=== PATIENT | male | born 1950 | race Caucasian/White ===

== ENCOUNTER 2017-05-01 04:56 | Emergency (ER) | payer OTHER ==
[~2017-05-01] VITALS: Ht 170.2 cm; Wt 60.8 kg
[2017-05-01 05:21] LABS: BASOPHILS % (AUTO) 0.6 % (0.0-2.0); EOSINOPHILS # (AUTO) 0.2 /CMM (0.0-0.7); EOSINOPHILS % (AUTO) 2.3 % (0.0-6.0); HEMATOCRIT 30 % (39-51); HEMOGLOBIN 10.1 g/dL (13.5-17.5); LYMPHOCYTES # (AUTO) 1.8 /CMM (0.8-4.8); LYMPHOCYTES % (AUTO) 25.7 % (20.0-44.0); MEAN CORPUSCULAR HEMOGLOBIN 30 PG (26.0-33.0); MEAN CORPUSCULAR HGB CONC 34 g/dl (31.0-36.0); MEAN CORPUSCULAR VOLUME 89 fL (80-96); MONOCYTES # (AUTO) 0.3 /CMM (0.1-1.30); MONOCYTES % (AUTO) 3.8 % (2.0-12.0); NEUTROPHILS # (AUTO) 4.7 /CMM (1.8-8.9); NEUTROPHILS % (AUTO) 67.6 % (43.0-81.0); PLATELET COUNT (AUTO) 175 /CMM (150-450); RDW COEFFICIENT OF VARIATION 15.8 (11.5-15.0); RED BLOOD CELL COUNT(AUTO) 3.39 MIL/uL (4.5-6.0)
[2017-05-01 05:32] LABS: CALCIUM, SERUM 8.2 mg/dL (8.5-10.1); CREATININE 1.6 mg/dL (0.6-1.3); POTASSIUM 4.4 mmol/L (3.5-5.1)
[2017-05-01 05:37] LABS: ALBUMIN 3.2 g/dL (3.4-5.0); BILIRUBIN,DIRECT 0.1 mg/dL (0.0-0.2); BILIRUBIN,TOTAL 0.2 mg/dL (0.2-1.0); TOTAL PROTEIN, SERUM 6.3 g/dL (6.4-8.2)
[2017-05-01 05:41] LABS: APPEARANCE,URINE CLEAR (CLEAR); BILIRUBIN,URINE NEGATIVE (NEGATIVE); BLOOD, URINE 1+ Ery/uL (NEGATIVE); COLOR,URINE YELLOW (YELLOW); KETONES,URINE NEGATIVE (NEGATIVE); LEUKOCYTE ESTERASE ,URINE NEGATIVE (NEGATIVE); NITRITE, URINE NEGATIVE (NEGATIVE); PROTEIN,URINE 1+ mg/dl (NEGATIVE); UGLUCOSE TRACE mg/dL (NEGATIVE); UROBILINOGEN,URINE 0.2 EU/dL (0.2)
[2017-05-01 05:49] LABS: BACTERIA,URINE None seen /HPF (None Seen); SQUAMOUS EPITHELIAL CELL,UR None Seen /HPF (None Seen); WBC,URINE 0-2 /HPF (0-3)
[2017-05-01 05:50] LABS: MUCUS,URINE Few /LPF (None Seen)
[2017-05-01 06:12] VITALS: BP 154/79
== END 2017-05-01 06:12 | disposition home or self-care (01) ==
LOC: ER 04:57
DX: E11.649 Type 2 diabetes mellitus with hypoglycemia without coma (principal); T38.3X5A Adverse effect of insulin and oral hypoglycemic [antidiabetic] drugs, initial encounter; Y92.89 Other specified places as the place of occurrence of the external cause; I10 Essential (primary) hypertension
CPT/HCPCS: 36415; 80048-TC; 80076-TC; 81000-TC; 82962-TC; 83690-TC; 85025-TC; A4606; Z7610

== ENCOUNTER 2017-08-25 16:54 | Emergency (ER) | payer MEDICARE, OTHER ==
[~2017-08-25] VITALS: Ht 172.7 cm; Wt 57.6 kg
--- NOTE | 2017-08-25 16:59 | NUR ---
RIGHT SIDE RIB CAGE PAIN S/P GLF ON MONDAY S/P HYPOGLYCEMIA
[2017-08-25] MEDS ORDERED: HYDROCODONE/APAP 5/325MG 1 EACH TABLET ONE (17:19)
[2017-08-25] MEDS ORDERED: HYDROCODONE/APAP 5/325MG 1 EACH TABLET PO ONE (17:30)
[2017-08-25 18:11] VITALS: BP 155/90
--- NOTE | 2017-08-25 18:11 | NUR ---
Patient discharged to home in stable condition. Written and verbal after care instructions given. Patient verbalizes understanding of instruction.
== END 2017-08-25 18:12 | disposition home or self-care (01) ==
LOC: ER 16:56
DX: S22.31XA Fracture of one rib, right side, initial encounter for closed fracture (principal); F17.200 Nicotine dependence, unspecified, uncomplicated; E10.9 Type 1 diabetes mellitus without complications; W18.39XA Other fall on same level, initial encounter; Y93.89 Activity, other specified; Y92.89 Other specified places as the place of occurrence of the external cause; Y99.8 Other external cause status; I10 Essential (primary) hypertension
CPT/HCPCS: 71250; 99284; A4606; Z7610

== ENCOUNTER 2017-12-08 22:29 | Emergency (ER) | payer MEDICARE, OTHER ==
--- NOTE | 2017-12-08 22:54 | NUR ---
67 YO MALE BB FAMILY, CAME IN FOR AN IV DC. SERGO STATES HE CALLED 911 2 DAYS AGO FOR LOW BLOOD SUGAR, EMS STARTED THE 18G LEFT FA, THEN DID NOT TRANSPORT HIM TOP THE HOSPITAL, NORE DID THEY DC THE IV. PATIENT ONLY COMPLAINT WAS THE IV. I DC THE IV, CATH INTACT, 2X2 GAUZE PLACED OVER SITE. NO DISTRESS NOTED, BLEEDING STOPPED. PATIENT THEN LEFT [facility] ED, DID NOT WANT TO BE SEE BY
== END 2017-12-08 22:59 | disposition home or self-care (01) ==
LOC: ER 22:38
DX: Z53.21 Procedure and treatment not carried out due to patient leaving prior to being seen by health care provider (principal)

== ENCOUNTER 2018-01-03 17:16 | Inpatient (IN) | payer MEDICARE, OTHER ==
[~2018-01-03] VITALS: Ht 175.3 cm; Wt 58.1 kg
--- NOTE | 2018-01-03 18:14 | NUR ---
PATIENT TO ED DT LOWER ABDOMINAL PAIN, 8/10, NON RADIATING X 2 WEEKS WORST TODAY. PATIENT IS AFEBRILE. DENIES NAUSEA AND VOMITTING. VSS
[2018-01-03] MEDS ORDERED: ONDANSETRON HCL/PF 4 MG/2 ML VIAL ONE (18:42)
--- NOTE | 2018-01-03 18:57 | NUR ---
REPORT GIVEN RTO ABHI MORGAN FOR MARY LOU
[2018-01-03] MEDS ORDERED: IV NS 0.9% 1,000 ML BAG IV ONE (19:00)
[2018-01-03] MEDS ORDERED: ONDANSETRON HCL/PF 4 MG/2 ML VIAL IVP ONE (19:00)
--- NOTE | 2018-01-03 19:10 | NUR ---
ASSUMED CARE: PT A/O X 4/GCS 15, BREATHING EVEN/UNLABORED, SKIN WARM/DRY, C/O 5/10 PAIN TO LOWER ABD/NON RADIATING. PT UPDATED TO PLAN OF CARE
[2018-01-03 19:14] LABS: EOSINOPHILS % (AUTO) 2.3 % (0.0-6.0); HEMATOCRIT 33 % (39-51); LYMPHOCYTES % (AUTO) 15.4 % (20.0-44.0); MEAN CORPUSCULAR HEMOGLOBIN 30 PG (26.0-33.0); MEAN CORPUSCULAR HGB CONC 34 g/dl (31.0-36.0); MEAN CORPUSCULAR VOLUME 90 fL (80-96); MONOCYTES % (AUTO) 4.3 % (2.0-12.0); NEUTROPHILS % (AUTO) 76.7 % (43.0-81.0); PLATELET COUNT (AUTO) 208 /CMM (150-450); RDW COEFFICIENT OF VARIATION 14.5 (11.5-15.0); RED BLOOD CELL COUNT(AUTO) 3.63 MIL/uL (4.5-6.0); WHITE BLOOD COUNT (AUTO) 6.9 K/uL (4.3-11.0)
[2018-01-03 19:15] LABS: BASOPHILS # (AUTO) 0.1 /CMM (0.0-0.2); BASOPHILS % (AUTO) 1.3 % (0.0-2.0); EOSINOPHILS # (AUTO) 0.2 /CMM (0.0-0.7); LYMPHOCYTES # (AUTO) 1.1 /CMM (0.8-4.8); MONOCYTES # (AUTO) 0.3 /CMM (0.1-1.30); NEUTROPHILS # (AUTO) 5.2 /CMM (1.8-8.9)
[2018-01-03 19:16] LABS: ALANINE AMINOTRANSFERASE 24 U/L (12-78); ALBUMIN 3.5 g/dL (3.4-5.0); ALKALINE PHOSPHATASE 227 U/L (46-116); ASPARTATE AMINOTRANSFERASE 14 U/L (15-37); BILIRUBIN,DIRECT 0.1 mg/dL (0.0-0.2); BILIRUBIN,TOTAL 0.3 mg/dL (0.2-1.0); CALCIUM, SERUM 8.2 mg/dL (8.5-10.1); CARBON DIOXIDE 24 mmol/L (21-32); CHLORIDE 99 mmol/L (98-107); CREATININE 2.1 mg/dL (0.6-1.3); LIPASE 85 U/L (73-393); POTASSIUM 4.8 mmol/L (3.5-5.1); SODIUM SERUM 131 mmol/L (136-145); TOTAL PROTEIN, SERUM 6.9 g/dL (6.4-8.2); UREA NITROGEN, BLOOD 18 mg/dL (7-18)
[2018-01-03 19:23] LABS: GLUCOSE 846 mg/dL (74-106)
[2018-01-03 19:35] LABS: SERUM AMMONIA < 10 umol/L (11-32)
[2018-01-03] MEDS ORDERED: INSULIN REGULAR, HUMAN 100 UNIT/ML 10 ML VIAL IV ONE (20:00)
[2018-01-03] MEDS ORDERED: INSULIN REGULAR, HUMAN 100 UNIT in IV NS 0.9% 99 ML IV PRN ×4 (20:00→20:30)
[2018-01-03 20:04] LABS: APPEARANCE,URINE Slightly Cloudy (CLEAR); BILIRUBIN,URINE Negative (NEGATIVE); BLOOD, URINE Small Ery/uL (NEGATIVE); COLOR,URINE Light yellow (YELLOW); KETONES,URINE Negative (NEGATIVE); LEUKOCYTE ESTERASE ,URINE Negative (NEGATIVE); NITRITE, URINE Negative (NEGATIVE); PH,URINE 5.5 (5.0-8.0); PROTEIN,URINE 100 mg/dl (NEGATIVE); UGLUCOSE 500 MG/DL mg/dL (NEGATIVE); UROBILINOGEN,URINE 0.2 EU/dL (0.2)
[2018-01-03 20:16] LABS: BACTERIA,URINE Rare /HPF (None Seen); MUCUS,URINE Few /LPF (None Seen); SQUAMOUS EPITHELIAL CELL,UR Rare /HPF (None Seen); WBC,URINE 0-2 /HPF (0-3)
[2018-01-03] MEDS ORDERED: IV NS 0.9% 1,000 ML IV PRN (20:26)
[2018-01-03] MEDS ORDERED: INSULIN REGULAR, HUMAN 100 UNIT/ML 10 ML VIAL ONE (20:27)
[2018-01-03] MEDS ORDERED: MORPHINE SULFATE INJ 2 MG/ML DISP.SYRIN IV PRN (20:30)
[2018-01-03] MEDS ORDERED: ONDANSETRON HCL/PF 4 MG/2 ML VIAL IVP PRN (20:30)
[2018-01-03] MEDS ORDERED: MORPHINE SULFATE INJ 4 MG/ML DISP.SYRIN ONE (20:54)
[2018-01-03] MEDS ORDERED: PANTOPRAZOLE 40 MG VIAL ONE (20:54)
[2018-01-03] MEDS: PANTOPRAZOLE 40 MG VIAL IV SCH (21:05)
--- NOTE | 2018-01-03 21:37 | NUR ---
REPORT TO IZZY MOE, ALL QUESTIONS ANSWERED, PT TRANSPORTED VIA PAY PER CLICK STRATEGIST
[2018-01-03 21:50] VITALS: BP 167/88
--- NOTE | 2018-01-03 22:00 | NUR ---
RN ADMITTING NOTES PATIENT BROUGHT INTO THE UNIT VIA GURNEY, SAFELY TRANSFERRED TO BED, PATIENT IS ALERT AND ORIENTED X 4, NOTED WITH NO SOB, BREATHING EVEN AND UNLABORED, NO COMPLAINT OF PAIN AT THIS TIME, IN NO ACUTE DISTRESS. ORIENTED PATIENT TO UNIT, ROOM, CALL LIGHT AND USE OF CALL LIGHT, ADMISSION PROCESS AND PATIENT VERBALIZED UNDERSTANDING. ALL PATIENT'S NEEDS ATTENDED TO, CALL LIGHT PLACED WITHIN EASY REACH, PLACED BED IN LOW POSITION AND LOCKED IN PLACE. IV PERIPHERAL LINE ON LAC G22, INTACT AND PATENT. WILL CONTINUE TO MONITOR PATIENT.
--- NOTE | 2018-01-03 22:30 | NUR ---
RN NOTES PATIENT VERBALIZED THAT HE WOULD LIKE TO GO DOWN TO SMOKE, INFORMED PATIENT THAT HE NEEDS TO BE IN STABLE CONDITION BEFORE DOING ANYTHING ELSE. PT VERBALIZED UNDERSTANDING.
--- NOTE | 2018-01-03 23:00 | NUR ---
RN NOTE IVF ORDER CLARIFIED WITH DR. YVON GARDNER, ALSO RECEIVED ORDER TO D/C IV INSULIN DRIP ORDERS. ALL ORDERS NOTED AND CARRIED OUT.
[2018-01-03] MEDS: IV NS 0.9% 1,000 ML IV PRN (23:17)
--- NOTE | 2018-01-03 23:30 | NUR ---
RN NOTE PATIENT STILL REQUESTING TO GO DOWN FOR A SMOKE, EDUCATED PATIENT OF THE RISKS OF SMOKING. PATIENT VERBALIZED UNDERSTANDING BUT CONTINUES TO REQUEST TO GO DOWN FOR A SMOKE. DR. SANZ INFORMED AND IS AWARE.
[2018-01-04] VITALS: BP 138/72
--- NOTE | 2018-01-04 00:30 | NUR ---
RN NOTE PATIENT WENT DOWN FOR A SMOKE ACCOMPANIED BY PRIMARY NURSE, IN STABLE CONDITION.
--- NOTE | 2018-01-04 00:50 | NUR ---
RN NOTE PATIENT BACK IN UNIT IN STABLE CONDITION. WILL CONTINUE TO MONITOR. RE-EDUCATED PATIENT REGARDING THE IMPORTANCE OF SMOKING CESSATION. PATIENT VERBALIZED UNDERSTANDING.
[2018-01-04] MEDS: BLOOD SUGAR DIAGNOSTIC 1 EACH STRIP IN SCH ×6 (00:57→20:21)
--- NOTE | 2018-01-04 01:15 | NUR ---
RN NOTE INFORMED PT THAT HIS BLOOD SUGAR IS 166MG/DL AND THAT HE NEEDS TO HAVE INSULIN. PER PATIENT HE DOES NOT WANT TO HAVE INSULIN ADMINISTERED. EXPLAINED RISKS TO PATIENT X 3 BUT PATIENT STILL REFUSES INSULIN ADMINISTRATION. WILL CONTINUE TO MONITOR.
--- NOTE | 2018-01-04 02:13 | NUR ---
RN NOTE PATIENT UNDER TELE MONITORING WITH SR @ 73 BPM. WILL CONTINUE TO MONITOR.
[2018-01-04 04:00] VITALS: BP 137/86
--- NOTE | 2018-01-04 06:23 | NUR ---
RN CLOSING NOTE PATIENT IN BED, ASLEEP BUT EASILY AROUSABLE. NO SOB NOTED, BREATHING EVEN AND UNLABORED, NO SIGNS AND SYMPTOMS OF DISTRESS, WITH NO C/O PAIN. PT ALERT AND ORIENTED X 4, VERBALLY RESPONSIVE. ALL PATIENT'S NEEDS ATTENDED TO AT THIS TIME, PLACED BED IN LOW POSITION AND LOCKED IN PLACE. WILL ENDORSE TO AM SHIFT NURSE FOR CONTINUITY OF CARE.
[2018-01-04 06:24] LABS: BASOPHILS # (AUTO) 0.1 /CMM (0.0-0.2); BASOPHILS % (AUTO) 1.1 % (0.0-2.0); EOSINOPHILS # (AUTO) 0.2 /CMM (0.0-0.7); EOSINOPHILS % (AUTO) 3.3 % (0.0-6.0); HEMATOCRIT 27 % (39-51); LYMPHOCYTES # (AUTO) 2.2 /CMM (0.8-4.8); LYMPHOCYTES % (AUTO) 31.6 % (20.0-44.0); MEAN CORPUSCULAR HEMOGLOBIN 30 PG (26.0-33.0); MEAN CORPUSCULAR HGB CONC 34 g/dl (31.0-36.0); MEAN CORPUSCULAR VOLUME 89 fL (80-96); MONOCYTES # (AUTO) 0.5 /CMM (0.1-1.30); MONOCYTES % (AUTO) 7.8 % (2.0-12.0); NEUTROPHILS # (AUTO) 3.8 /CMM (1.8-8.9); NEUTROPHILS % (AUTO) 56.2 % (43.0-81.0); PLATELET COUNT (AUTO) 177 /CMM (150-450); RDW COEFFICIENT OF VARIATION 14.6 (11.5-15.0); RED BLOOD CELL COUNT(AUTO) 3.03 MIL/uL (4.5-6.0); WHITE BLOOD COUNT (AUTO) 6.9 K/uL (4.3-11.0)
[2018-01-04 06:45] LABS: CREATININE 1.8 mg/dL (0.6-1.3); MAGNESIUM 1.4 mg/dL (1.8-2.4); PHOSPHORUS 3.6 mg/dL (2.5-4.9); POTASSIUM 3.8 mmol/L (3.5-5.1)
[2018-01-04] MEDS: IV NS 0.9% 1,000 ML IV PRN (06:48)
[2018-01-04 06:49] LABS: THYROID STIMULATING HORMONE 1.501 uIU/mL (0.358-3.74)
[2018-01-04] MEDS ORDERED: MORPHINE SULFATE INJ 4 MG/ML DISP.SYRIN IV PRN (07:30)
--- NOTE | 2018-01-04 07:44 | NUR ---
TELE/RN NOTES RECEIVED PATIENT RESTING IN BED COMFORTABLY, ALERT AND ORIENTED X4, VERBALLY RESPONSIVE. IN NO APPARENT DISTRESS, DENIES PAIN/DISCOMFORT AT THIS TIME. RESPIRATION EVEN AND UNLABORED, ON ROOM AIR. PER TELE MONITOR SR HR IN 70S. CURRENTLY NPO STATUS. STRICT BLOOD SUGAR CHECKS AND MONITORING. SAFETY MEASURES RENDERED, CALL LIGHT PLACED WITHIN REACH, WILL CONTINUE TO MONITOR.
[2018-01-04 08:00] VITALS: BP 132/74
[2018-01-04] MEDS: PANTOPRAZOLE 40 MG VIAL IV SCH (08:23)
--- NOTE | 2018-01-04 08:24 | NUR ---
TELE/RN NOTES 0900 BLOOD SUGAR CHECK 48MG/DL. INITIATED PROTOCOL, NOTIFIED. ADMINISTERED 50% DEXTROSE VIA IV PUSH AND PROVIDED ORANGE JUICE. WILL RE-CHECK BLOOD SUGAR ACCORDINGLY.
[2018-01-04] MEDS: DEXTROSE 50%-WATER 50 ML DISP.SYRIN IV PRN ×2 (08:31→20:26)
--- NOTE | 2018-01-04 09:00 | NUR ---
MS/RN NOTES BLOOD SUGAR RE-CHECKED 108MG/DL, BREAKFAST AT BEDSIDE. NO S/S OF HYPOGLYCEMIA NOTED. WILL CONTINUE TO MONITOR.
[2018-01-04] MEDS ORDERED: CARV12.52 PO (09:57)
[2018-01-04] MEDS ORDERED: INSU100V7 SQ (09:57)
[2018-01-04] MEDS ORDERED: ASPI-1169 PO (09:57)
[2018-01-04] MEDS ORDERED: INSU100V27 SQ (09:57)
[2018-01-04] MEDS ORDERED: LOSA1TAB39 PO (09:59)
[2018-01-04] MEDS ORDERED: ACETAMINOPHEN 325 MG TABLET PO PRN (10:00)
[2018-01-04] MEDS ORDERED: IV D5/0.45 NACL 1,000 ML IV ONE (12:00)
[2018-01-04] MEDS: Magnesium 1GM/D5W 100ML PREMIX 100 ML IV SCH ×2 (13:26→14:52)
[2018-01-04] MEDS: INSULIN REGULAR, HUMAN 100 UNIT/ML 3 ML VIAL SQ PRN ×2 (13:28→17:55)
[2018-01-04 16:00] VITALS: BP 140/80
--- NOTE | 2018-01-04 16:20 | NUR ---
MS/RN NOTES PATIENT ASKING TO GO FOR SMOKE, RAIL TRANSPORTATION TABELER ESCORTED PATIENT DOWN FOR SMOKE. NO S/S OF DISTRESS. PATIENT DOES NOT PRESENT WITH ANY S/S OF HYPO/HYPERGLYCEMIA. WILL CONTINUE TO MONITOR PATIENT ACCORDINGLY.
--- NOTE | 2018-01-04 18:41 | NUR ---
MS/RN NOTES PATIENT RESTING IN BED COMFORTABLY AT BEDSIDE, PATIENT REMIANS IN NO APPRENT DISTRESS, ALL MEDICATIONS GIVEN, ALL NEEDS MET AND ATTENDED. PATIENT MONITORED FOR SYMPTOMS OF HYPO/HYPERGLYCEMIA, MANAGED ACCORDINGLY. SAFETY MEASURES RENDERED, CALL LIGHT PLACED WITHIN REACH,. WILL ENDORSE CARE TO POWDER LINE REPAIRER FOR MARY LOU
--- NOTE | 2018-01-04 19:30 | NUR ---
MS RN OPENING NOTES; RECEIVED PT AND IS A/OX4. AT BEDSIDE. PT IS AWAITING TO GO ON A SMOKE BREAK. INFORMED PT THAT SOON TILER IS AVAILABLE, SHE WILL TAKE HIM DOWNSTAIRS. PT HAS IV ON L AC #22G AND IS GOING TO BE CONNECTED TO FLUIDS AFTER HIS SMOKE BREAK. PT ON ROOM AIR AND TOLERATING WELL. WILL CONTINUE TO MONITOR PT.
[2018-01-04 20:00] VITALS: BP 163/93
--- NOTE | 2018-01-04 20:19 | NUR ---
MS RN NOTES: PT BACK FROM SMOKE BREAK.
--- NOTE | 2018-01-04 20:31 | NUR ---
MS RN NOTES; BLOOD SUGAR WAS 53. D50 WAS GIVEN. ORANGE JUICE ADMINISTERED WELL. WILL RE CHECK AGAIN AND CONTINUE TO MONITOR.
--- NOTE | 2018-01-04 20:45 | NUR ---
MS RN NOTES: BLOOD SUGAR RECHECKED AND NOW 154. WILL CONTINUE TO MONITOR ORDERED.
--- NOTE | 2018-01-04 20:51 | NUR ---
MS RN NOTES: SPOKE WITH DR. YVON Castillo. INFORMED HIM THAT PT IS REQUESTING FOR MOTRIN. ALSO INFORMED HIM OF ELEVATED BP 163/93 HR 86. GOT ORDER FOR MOTRIN 400MG Q8HR PRN AND TO MONITOR BP.
[2018-01-04] MEDS: IBUPROFEN 400 MG TABLET PO PRN (21:10)
--- NOTE | 2018-01-04 21:11 | NUR ---
MS RN NOTES: PT WAS COMPLAINING OF HEADACHE. PT WAS ADMINISTERED MOTRIN 400MG PO. WILL CONTINUE TO MONITOR PT.
[2018-01-05] MEDS: BLOOD SUGAR DIAGNOSTIC 1 EACH STRIP IN SCH ×3 (00:04→08:37)
[2018-01-05] MEDS: INSULIN REGULAR, HUMAN 100 UNIT/ML 3 ML VIAL SQ PRN ×3 (00:05→08:41)
--- NOTE | 2018-01-05 00:05 | NUR ---
MS RN NOTES: BLOOD SUGAR WAS 128. NO INSULIN WAS ADMINISTERED. WILL CONTINUE TO MONITOR PT.
--- NOTE | 2018-01-05 04:53 | NUR ---
MS RN NOTES: BLOOD SUGAR IS 222. 4 UNITS OF INSULIN WAS ADMINISTERED. SNACK PROVIDED WELL. WAS MANUALLY ADMINISTERED SINCE INSULIN HAS NO TAG. WILL CONTINUE TO MONITOR PT.
[2018-01-05 06:30] LABS: MAGNESIUM 1.9 mg/dL (1.8-2.4); POTASSIUM 3.6 mmol/L (3.5-5.1)
--- NOTE | 2018-01-05 07:15 | NUR ---
MS RN CLOSING NOTES: ALL NEEDS WERE ATTENDED AND ANTICIPATED FOR. PT IS SLEEPING COMFORTABLY AT THIS TIME. PT ON ROOM AIR AND TOLERATING WELL. PT HAS URINAL AT BEDSIDE. CALL LIGHT WITHIN PT'S REACH. PT HAS IV ON L AC #22G AND IS PATENT AND INTACT. CURRENTLY S/L. BED KEPT IN LOW, LOCKED POSITION, AND SIDE RAILS X 2UP. ENDORSED TO AM NURSE FOR MARY LOU.
--- NOTE | 2018-01-05 07:47 | NUR ---
MS RN: INITIAL NOTE RECEIVED PT A/OX4. NO DISTRESS NOTED. NO SOB NOTED. NO PAIN NOTED. CONTINENT. BRP WITH OUT ASSIST. ALSO USES URINAL. CLEAR LIQUIDS. L AC #22 HL. SITE CLEAR AND PATENT. NO REDNESS OR BLEEDING NOTED. RESTING COMFORTABLY IN BED. CALL LIGHT WITHIN REACH.
[2018-01-05 08:00] VITALS: BP 148/76
[2018-01-05 08:38] VITALS: BP 148/73
[2018-01-05] MEDS: IBUPROFEN 400 MG TABLET PO PRN (08:38)
[2018-01-05] MEDS: PANTOPRAZOLE 40 MG VIAL IV SCH (08:39)
[2018-01-05] MEDS ORDERED: HYDROCHLOROTHIAZIDE 25 MG TABLET PO SCH (09:00)
[2018-01-05] MEDS ORDERED: LOSARTAN POTASSIUM 50 MG TABLET PO SCH (09:00)
[2018-01-05] MEDS ORDERED: ASPIRIN 81 MG TAB.CHEW PO SCH (09:00)
[2018-01-05] MEDS ORDERED: CARVEDILOL 12.5 MG TABLET PO SCH (09:00)
--- NOTE | 2018-01-05 11:56 | NUR ---
MS RN: DISCHARGE NOTE PT D/C HOME WITH SELF CARE. TOOK ALL MORNING MEDICATIONS ON TIME. NO ADVERSE REACTIONS NOTED. NO SOB NOTED. NO PAIN NOTED. NO DISTRESS NOTED. A/OX4. CONTINENT. BRP WITH OUT ASSIST. USED URINAL NEEDED. L AC #22 HL REMOVED. SITE CLEAR AND NO REDNESS OR BLEEDING NOTED. INSULIN GIVEN PER SLIDING SCALE AND ORDER. ALL DISCHARGE INFORMATION PROVIDED. COPIES GIVEN AND PATIENT SIGNED ALL COPIES. ALL BELONGINGS ACCOUNTED FOR. VALUABLES PAPER SIGNED. SKIN INTACT. LEFT AMBULATORY VIA PRIVATE CAR WITH SON.
== END 2018-01-05 11:45 | disposition home or self-care (01) | DRG 638 ==
LOC: ER 17:24 → TELE 21:54 → MED 01-04 08:25
PROVIDERS: ATTEND Internal Medicine
DX: E11.00 Type 2 diabetes mellitus with hyperosmolarity without nonketotic hyperglycemic-hyperosmolar coma (NKHHC) (principal); N17.9 Acute kidney failure, unspecified; K86.1 Other chronic pancreatitis; I10 Essential (primary) hypertension; D64.9 Anemia, unspecified; E11.22 Type 2 diabetes mellitus with diabetic chronic kidney disease; N18.9 Chronic kidney disease, unspecified; I12.9 Hypertensive chronic kidney disease with stage 1 through stage 4 chronic kidney disease, or unspecified chronic kidney disease; F17.210 Nicotine dependence, cigarettes, uncomplicated; N20.0 Calculus of kidney; Z79.4 Long term (current) use of insulin; R19.7 Diarrhea, unspecified; R74.8 Abnormal levels of other serum enzymes
CPT/HCPCS: 36415; 80048-TC; 80061-TC; 80076-TC; 81000-TC; 82140-TC; 82962-TC; 83690-TC; 83735-TC; 84100-TC; 84443-TC; 85025-TC; 87081-TC; A4606; C9113; J1815; J2270; J2405; J3475; J3490; J7030; J7042; Z7610

== ENCOUNTER 2018-10-22 13:53 | Outpatient (CLI) | payer MEDICARE, OTHER ==
[~2018-10-22 13:53] MED LIST: ASPI-1169 PO; CARV12.52 PO; CLON0.1T PO; INSU100V27 SQ; INSU100V7 SQ; LOSA1TAB39 PO
== END 2018-10-22 23:59 | disposition home health service (06) ==
LOC: WOU 13:53
PROVIDERS: ATTEND Surgery
DX: Z48.817 Encounter for surgical aftercare following surgery on the skin and subcutaneous tissue (principal); T81.89XA Other complications of procedures, not elsewhere classified, initial encounter; E11.9 Type 2 diabetes mellitus without complications; Z79.4 Long term (current) use of insulin; I10 Essential (primary) hypertension; F17.210 Nicotine dependence, cigarettes, uncomplicated; E78.5 Hyperlipidemia, unspecified
CPT/HCPCS: 11043; Z7610

== ENCOUNTER 2018-10-29 14:00 | Outpatient (CLI) | payer MEDICARE, OTHER | END 2018-10-29 23:59 | disposition home health service (06) | LOC: WOU 14:00 | PROVIDERS: ATTEND Surgery | DX: Z48.817 Encounter for surgical aftercare following surgery on the skin and subcutaneous tissue (principal); T81.89XA Other complications of procedures, not elsewhere classified, initial encounter; I10 Essential (primary) hypertension; E11.9 Type 2 diabetes mellitus without complications; Z79.4 Long term (current) use of insulin; F17.210 Nicotine dependence, cigarettes, uncomplicated; E78.5 Hyperlipidemia, unspecified | CPT/HCPCS: 11043; A6402; Z7610 ==

== ENCOUNTER 2018-11-19 15:15 | Outpatient (CLI) | payer MEDICARE, OTHER | END 2018-11-19 23:59 | disposition home health service (06) | LOC: WOU 15:15 | PROVIDERS: ATTEND Surgery | DX: Z48.817 Encounter for surgical aftercare following surgery on the skin and subcutaneous tissue (principal); T81.89XA Other complications of procedures, not elsewhere classified, initial encounter; F17.200 Nicotine dependence, unspecified, uncomplicated; E11.9 Type 2 diabetes mellitus without complications; Z79.4 Long term (current) use of insulin; I10 Essential (primary) hypertension; D64.9 Anemia, unspecified; E78.5 Hyperlipidemia, unspecified | CPT/HCPCS: 11042; A6402; Z7610 ==

== ENCOUNTER 2018-12-03 14:40 | Outpatient (CLI) | payer MEDICARE, OTHER | END 2018-12-03 23:59 | disposition home health service (06) | LOC: WOU 14:40 | PROVIDERS: ATTEND Surgery | DX: Z48.817 Encounter for surgical aftercare following surgery on the skin and subcutaneous tissue (principal); T81.89XA Other complications of procedures, not elsewhere classified, initial encounter; F17.200 Nicotine dependence, unspecified, uncomplicated; E11.9 Type 2 diabetes mellitus without complications; Z79.4 Long term (current) use of insulin; I10 Essential (primary) hypertension; D64.9 Anemia, unspecified; E78.5 Hyperlipidemia, unspecified; Z79.82 Long term (current) use of aspirin | CPT/HCPCS: 11043; A6402 ×2; Z7610 ==

== ENCOUNTER 2018-12-24 14:30 | Outpatient (CLI) | payer MEDICARE, OTHER | END 2018-12-24 23:59 | disposition home health service (06) | LOC: WOU 14:30 | PROVIDERS: ATTEND Surgery | DX: Z09 Encounter for follow-up examination after completed treatment for conditions other than malignant neoplasm (principal); Z87.2 Personal history of diseases of the skin and subcutaneous tissue; E11.9 Type 2 diabetes mellitus without complications; I10 Essential (primary) hypertension; F17.200 Nicotine dependence, unspecified, uncomplicated; D64.9 Anemia, unspecified; E78.5 Hyperlipidemia, unspecified; Z79.82 Long term (current) use of aspirin; Z79.4 Long term (current) use of insulin | CPT/HCPCS: A6402; G0463 ==

== ENCOUNTER 2019-04-11 13:25 | Inpatient (IN) | payer MEDICARE, OTHER ==
[~2019-04-11] VITALS: Ht 172.7 cm; Wt 59.0 kg
--- NOTE | 2019-04-11 13:48 | NUR ---
DANGELO CONCRETE BUILDING ASSEMBLER AT BEDSIDE FOR EVAL.
--- NOTE | 2019-04-11 13:59 | NUR ---
IV LINE STARTED BLOOD DRAWN AND SENT TO LAB.
[2019-04-11 14:05] LABS: BASOPHILS # (AUTO) 0.1 /CMM (0.0-0.2); HEMATOCRIT 27 % (39-51); HEMOGLOBIN 8.7 g/dL (13.5-17.5); LYMPHOCYTES # (AUTO) 1.4 /CMM (0.8-4.8); LYMPHOCYTES % (AUTO) 16.7 % (20.0-44.0); MEAN CORPUSCULAR HGB CONC 33 g/dl (31.0-36.0); MEAN CORPUSCULAR VOLUME 89 fL (80-96); MONOCYTES # (AUTO) 0.5 /CMM (0.1-1.30); MONOCYTES % (AUTO) 5.8 % (2.0-12.0); NEUTROPHILS # (AUTO) 6.1 /CMM (1.8-8.9); NEUTROPHILS % (AUTO) 71.5 % (43.0-81.0); PLATELET COUNT (AUTO) 228 /CMM (150-450); WHITE BLOOD COUNT (AUTO) 8.5 K/uL (4.3-11.0)
[2019-04-11 14:14] LABS: CALCIUM, SERUM 6.4 mg/dL (8.5-10.1); CREATININE 4.3 mg/dL (0.6-1.3); POTASSIUM 4.6 mmol/L (3.5-5.1)
[2019-04-11 14:26] LABS: ALBUMIN 2.9 g/dL (3.4-5.0); BILIRUBIN,TOTAL 0.3 mg/dL (0.2-1.0); TOTAL PROTEIN, SERUM 6.6 g/dL (6.4-8.2)
--- NOTE | 2019-04-11 15:07 | NUR ---
DR PIERRE AT BEDSIDE FOR EVAL.
[2019-04-11] MEDS ORDERED: FUROSEMIDE 20 MG/2 ML VIAL ONE (15:22)
[2019-04-11] MEDS ORDERED: ASPIRIN 81 MG TAB.CHEW ONE (15:22)
[2019-04-11] MEDS ORDERED: FUROSEMIDE 20 MG/2 ML VIAL IV ONE (15:30)
[2019-04-11] MEDS ORDERED: ASPIRIN 81 MG TAB.CHEW PO ONE (15:30)
--- NOTE | 2019-04-11 16:05 | NUR ---
DR PIERRE MADE AWARE OF PT B/P. AWAITING ORDER.
[2019-04-11] MEDS ORDERED: hydrALAZINE HCL IV 20 MG VIAL ONE (16:13)
--- NOTE | 2019-04-11 16:13 | NUR ---
HYDRALAZINE 10MG IVP GIVEN PER ERMD VERBAL ORDER.
--- NOTE | 2019-04-11 16:29 | NUR ---
REPORT GIVEN TO ROCHELLE MOE. PT AWAITING TRANSFER TO FLOOR.
[2019-04-11] MEDS ORDERED: hydrALAZINE HCL IV 20 MG VIAL IV PRN ×2 (16:30→17:00)
[2019-04-11 17:00] VITALS: BP 175/97
[2019-04-11] MEDS ORDERED: NITROGLYCERIN 0.4 MG/TAB BOTTLE SL PRN (17:00)
[2019-04-11] MEDS ORDERED: ACETAMINOPHEN 325 MG TABLET PO PRN (17:00)
[2019-04-11] MEDS ORDERED: DEXTROSE 50%-WATER 50 ML DISP.SYRIN IV PRN (17:00)
[2019-04-11] MEDS ORDERED: MORPHINE SULFATE INJ 2 MG/ML DISP.SYRIN IV PRN (17:00)
[2019-04-11] MEDS ORDERED: Z GUARD REMEDY 2 OZ OINT TP PRN (17:00)
[2019-04-11] MEDS ORDERED: ZOLPIDEM TARTRATE 5 MG TABLET PO PRN (17:00)
[2019-04-11] MEDS ORDERED: MAGNESIUM HYDROXIDE 30 ML UDC PO PRN (17:00)
[2019-04-11] MEDS ORDERED: MAG HYDROX/AL HYDROX/SIMETH 30 ML UDC PO PRN (17:00)
[2019-04-11] MEDS ORDERED: CLONIDINE HCL 0.1MG/24H PTWK 1 EA PATCH TD SCH (17:00)
[2019-04-11] MEDS ORDERED: ONDANSETRON HCL/PF 4 MG/2 ML VIAL IVP PRN (17:00)
[2019-04-11] MEDS ORDERED: CLONIDINE HCL 0.1 MG TABLET PO PRN (17:00)
[2019-04-11] MEDS ORDERED: HYDROCODONE/APAP 5/325MG 1 EACH TABLET PO PRN (17:00)
[2019-04-11] MEDS ORDERED: BUMETANIDE INJ 0.25 MG/ML VIAL IV ONE (17:00)
[2019-04-11] MEDS: BLOOD SUGAR DIAGNOSTIC 1 EACH STRIP IN SCH ×2 (17:26→22:13)
--- NOTE | 2019-04-11 17:30 | NUR ---
Tele/RN - Admission Received patient from ER, alert and oriented x 4, denies chest pain, palpitation but c/o shortness of breath with exertion, unable to lay flat in bed, tele shows SR-ST. Admitted for NSTEMI; Acute CHF under the care of ADITI Paniagua. Patient oriented to room, all belongings accounted for. Saline lock on the RAC is patent and intact. Skin assessment done, no skin breakdown, refused photo to be taken. Fall and safety precautions initiated. Will continue to monitor and intervene as needed.
[2019-04-11] MEDS: INSULIN REGULAR, HUMAN 100 UNIT/ML 3 ML VIAL SQ PRN ×2 (18:17→21:38)
--- NOTE | 2019-04-11 18:40 | NUR ---
Tele/RN - End of shift summary Patient is awake, A/O x 4, currently on oxygen at 2 lpm via NC, denies chest pain, BP improved 162/89, started on Catapres patch, Bumex 1 mg IVP given once as ordered, diuresing well. All needs attended. Cardio and nephro consult pending. Will continue with current medical management.
--- NOTE | 2019-04-11 19:10 | NUR ---
Tele/RN PM - OPENING NOTE Bedside report recieved from Deidre whitney. Patient is awake, A/O x 4, currently on oxygen at 2 lpm via NC, denies chest pain, on telemetry running st at 100. Cardio and nephro consult pending. reviewed poc questions concerns addressed. verbalized understnanding to call for assistance as needed.
[2019-04-11 20:00] VITALS: BP 169/91
[2019-04-12] VITALS: BP 130/78
[2019-04-12 04:00] VITALS: BP 131/80
[2019-04-12] MEDS: BLOOD SUGAR DIAGNOSTIC 1 EACH STRIP IN SCH ×4 (06:45→21:28)
--- NOTE | 2019-04-12 06:45 | NUR ---
Tele/RN PM - End of shift summary Patient is awake, A/O x 4, currently on oxygen at 2 lpm via NC, denies chest pain, All needs attended. Cardio and nephro consult pending for today. Will continue with current medical management. patient blood sugar is 140 offered 2 units of regular insulin patient state, "No thanks i don't need." lispro not in cassete on floor.
[2019-04-12 07:00] LABS: BASOPHILS # (AUTO) 0.1 /CMM (0.0-0.2); BASOPHILS % (AUTO) 1.4 % (0.0-2.0); EOSINOPHILS % (AUTO) 5.7 % (0.0-6.0); HEMATOCRIT 24 % (39-51); HEMOGLOBIN 7.9 g/dL (13.5-17.5); LYMPHOCYTES # (AUTO) 2.1 /CMM (0.8-4.8); LYMPHOCYTES % (AUTO) 24.3 % (20.0-44.0); MEAN CORPUSCULAR HGB CONC 33 g/dl (31.0-36.0); MEAN CORPUSCULAR VOLUME 87 fL (80-96); MONOCYTES # (AUTO) 0.6 /CMM (0.1-1.30); MONOCYTES % (AUTO) 6.6 % (2.0-12.0); NEUTROPHILS # (AUTO) 5.4 /CMM (1.8-8.9); PLATELET COUNT (AUTO) 201 /CMM (150-450); RED BLOOD CELL COUNT(AUTO) 2.75 MIL/uL (4.5-6.0); WHITE BLOOD COUNT (AUTO) 8.7 K/uL (4.3-11.0)
[2019-04-12 07:13] LABS: ALBUMIN 2.4 g/dL (3.4-5.0); BILIRUBIN,TOTAL 0.3 mg/dL (0.2-1.0); CALCIUM, SERUM 6.5 mg/dL (8.5-10.1); CREATININE 4.7 mg/dL (0.6-1.3); MAGNESIUM 1.4 mg/dL (1.8-2.4); PHOSPHORUS 7.4 mg/dL (2.5-4.9); TOTAL PROTEIN, SERUM 5.7 g/dL (6.4-8.2)
[2019-04-12 07:15] LABS: THYROID STIMULATING HORMONE 1.504 uIU/mL (0.358-3.74)
--- NOTE | 2019-04-12 07:43 | NUR ---
EVP MANAGING DIRECTOR OPENING NOTES RECEIVED PT RESTING IN BED. A/O X4. ON SUPPLEMENTAL OXYGEN AT 2LPM VIA NC, WITH NO ACUTE RESPIRATORY DISTRESS NOTED. PT DENIES PAIN OR ANY DISCOMFORT AT THIS TIME. PT ALSO DENIES QUESTIONS AND CONCERNS. PT ON TELEMONITORING WITH SR, HR OF 92. PIV TO RAC 20, FLUSHED WITH NS, INTACT AND PATENT. PT KEPT COMFORTABLE. PT'S BED IN LOWEST, LOCKED POSITION WITH SR X2. WILL CONTINUE PLAN OF CARE.
[2019-04-12 08:00] VITALS: BP 137/77
--- NOTE | 2019-04-12 08:02 | NUR ---
RN NOTES CALLED PHARMACY AND SPOKE TO BERTHA REGARDING INSULIN LISPRO. MEDICINE TO DELIVER PER BERTHA, WILL ADMINISTER SOON MEDICATION IS AVAILABLE.
[2019-04-12] MEDS: PANTOPRAZOLE 40 MG TABLET.DR PO SCH (08:07)
--- NOTE | 2019-04-12 08:28 | NUR ---
RN NOTES INSULIN LISPRO STILL NOT AVAILABLE AT THIS TIME. MEDICINE TO ADMINISTER WHEN MEDICINE IS AVAILABLE.
--- NOTE | 2019-04-12 08:33 | NUR ---
RN NOTES RECEIVED CALL FROM PHARMACY, SPOKE AGAIN TO BERTHA. TO MISS THE DOSE THIS MORNING. MEDICINE NOT AVAILABLE. WILL DELIVER MEDICINE ONCE IT IS AVAILABLE. PT WILL MAKE AWARE.
[2019-04-12] MEDS: INSULIN LISPRO/ASPART 100 UNIT/ML CARTRIDGE SQ SCH ×2 (08:35→08:48)
[2019-04-12] MEDS: ASPIRIN 81 MG TAB.CHEW PO SCH (08:44)
[2019-04-12] MEDS: NICOTINE PATCH (14MG) 14 MG PATCH.TD24 TD SCH (08:44)
--- NOTE | 2019-04-12 08:50 | NUR ---
RN NOTES INSULIN GLARGINE 15 UNITS WAS ADMINISTERED 0848 COSIGNED BY RYLEE ALVAREZ. NOT INSULIN LISPRO 7UNITS. THE LABEL IN THE PEN OF [facility] HAS LABEL OF INSULIN LISPRO WELL. PHARMACY WILL NOTIFY.
[2019-04-12] MEDS: INSULIN GLARGINE, 100 UNIT/ML CARTRIDGE SQ SCH (09:00)
[2019-04-12] MEDS ORDERED: LOSARTAN/HCTZ 50-12.5MG/ 1 EA TABLET PO SCH (09:00)
--- NOTE | 2019-04-12 09:08 | NUR ---
RN NOTES CALLED AND SPOKE TO PHARMACIST/STELLA REGARDING INSULIN GLARGINE 15UNITS. MEDICINE WAS GIVEN TO PT 10-15MINS AGO TO RIGHT UPPER QUADRANT, COSIGNED BY RYLEE LARA RN. BUT STILL SHOWING ON EMAR THAT IT WASN'T ADMINISTERED. WHENEVER I/RN TRY TO RESCAN THE MEDICINE IT PROMPTS "TO ADMINISTER IN A FUTURE DATE". PHARMACIST/STELLA AWARE.
[2019-04-12] MEDS ORDERED: BUMETANIDE INJ 0.25 MG/ML VIAL IV ONE (10:30)
[2019-04-12] MEDS: Magnesium 1GM/D5W 100ML PREMIX 1 G in PREMIX 1 EA IV SCH ×2 (11:07→12:24)
[2019-04-12] MEDS: CEFTRIAXONE 1 G in IV D5W 50 ML IV SCH (12:08)
[2019-04-12] MEDS: INSULIN REGULAR, HUMAN 100 UNIT/ML 3 ML VIAL SQ PRN ×3 (12:20→21:30)
[2019-04-12] MEDS: AZITHROMYCIN 500 MG in IV D5W 250 ML IV SCH (12:49)
[2019-04-12] MEDS: CALCIUM ACETATE 667 MG TABLET PO SCH ×2 (13:47→17:15)
[2019-04-12 16:00] VITALS: BP 118/77
[2019-04-12 17:53] LABS: APPEARANCE,URINE CLEAR (CLEAR); BILIRUBIN,URINE NEGATIVE (NEGATIVE); BLOOD, URINE 1+ Ery/uL (NEGATIVE); COLOR,URINE YELLOW (YELLOW); KETONES,URINE NEGATIVE (NEGATIVE); LEUKOCYTE ESTERASE ,URINE NEGATIVE (NEGATIVE); NITRITE, URINE NEGATIVE (NEGATIVE); PROTEIN,URINE 2+ mg/dl (NEGATIVE); UGLUCOSE 2+ mg/dL (NEGATIVE); UROBILINOGEN,URINE 0.2 EU/dL (0.2)
[2019-04-12 18:06] LABS: EOSINOPHIL,URINE None Seen
[2019-04-12 18:11] LABS: BACTERIA,URINE None seen /HPF (None Seen); SQUAMOUS EPITHELIAL CELL,UR Few /HPF (None Seen); WBC,URINE 0-2 /HPF (0-3)
[2019-04-12 18:12] LABS: MUCUS,URINE Few /LPF (None Seen)
[2019-04-12 18:15] LABS: CREATININE, URINE 20.3 MG/DL (30.0-125.0); URINE TOTAL PROTEIN 122.2 mg/dL (0-11.9)
--- NOTE | 2019-04-12 18:55 | NUR ---
SR. MANAGER MARKETING CLOSING NOTES PT REMAINS RESTING IN BED. A/O X4. ON SUPPLEMENTAL OXYGEN AT 2LPM VIA NC, WITH NO ACUTE RESPIRATORY DISTRESS NOTED. PT DENIES PAIN OR ANY DISCOMFORT AT THIS TIME. PT ON TELEMONITORING WITH SR, HR OF 91. PIV TO RAC 20, FLUSHED WITH NS, INTACT AND OPERATIONAL. ALL NEEDS AND CARE PROVIDED. PT KEPT COMFORTABLE. PT'S BED IN LOWEST, LOCKED POSITION WITH SR X2. WILL ENDORSE TO INCOMING NIGHT NURSE FOR MARYL OU.
--- NOTE | 2019-04-12 19:25 | NUR ---
RN OPEN NOTES RECEIVED PATIENT AWAKE IN BED. A/O X4. NO SIGNS OF DISTRESS OR DISCOMFORT. BREATHING EVEN AND UNLABORED. ON TELE MONITORING WITH SR 90 NOTED. IV ACCESS IN RAC, PATENT AND INTACT, NO SIGNS OF REDNESS OR INFILTRATION. BED IN LOW LOCKED POSITION WITH SIDE RAILS X2. CALL LIGHT WITHIN REACH. WILL CONTINUE TO MONITOR.
[2019-04-12 20:00] VITALS: BP 128/76
[2019-04-12 20:08] VITALS: BP 128/76
--- NOTE | 2019-04-12 20:53 | NUR ---
Spoke with patient, he is alert and pleasant. States he rents a room at his son's house in [place] . States he is ambulatory and independent with adl's. Has no DME or homehealth reported. His pcp is Dr. Lyndsey Cross in [place]. He plan to return home, his son will provide ride. Addendum: 04/12/19 at 2052 by EMIGDIO OKEEFE RN Amended: Links added.
[2019-04-13] VITALS: BP 128/79
[2019-04-13 04:00] VITALS: BP_SYST 134; BP_DIAS 82; BP_DIAS 87
[2019-04-13] MEDS: BLOOD SUGAR DIAGNOSTIC 1 EACH STRIP IN SCH ×4 (06:43→21:56)
--- NOTE | 2019-04-13 07:20 | NUR ---
RN CLOSING NOTES PATIENT AWAKE IN BED. A/O X4. NO SIGNS OF DISTRESS OR DISCOMFORT. BREATHING EVEN AND UNLABORED. ON TELE MONITORING WITH SR 80 NOTED. IV ACCESS IN RAC, PATENT AND INTACT, NO SIGNS OF REDNESS OR INFILTRATION. ALL NEEDS MET. NO SIGNIFICANT CHANGES THROUGH THE NIGHT. BED IN LOW LOCKED POSITION WITH SIDE RAILS X2. CALL LIGHT WITHIN REACH. ENDORSED TO AM SHIFT FOR MARY LOU.
[2019-04-13 07:23] LABS: BASOPHILS # (AUTO) 0.1 /CMM (0.0-0.2); BASOPHILS % (AUTO) 1.1 % (0.0-2.0); EOSINOPHILS % (AUTO) 6.3 % (0.0-6.0); HEMATOCRIT 25 % (39-51); HEMOGLOBIN 8.2 g/dL (13.5-17.5); LYMPHOCYTES # (AUTO) 2.1 /CMM (0.8-4.8); LYMPHOCYTES % (AUTO) 27.8 % (20.0-44.0); MEAN CORPUSCULAR HGB CONC 33 g/dl (31.0-36.0); MEAN CORPUSCULAR VOLUME 88 fL (80-96); MONOCYTES # (AUTO) 0.4 /CMM (0.1-1.30); MONOCYTES % (AUTO) 5.6 % (2.0-12.0); NEUTROPHILS # (AUTO) 4.5 /CMM (1.8-8.9); NEUTROPHILS % (AUTO) 59.2 % (43.0-81.0); PLATELET COUNT (AUTO) 204 /CMM (150-450); RED BLOOD CELL COUNT(AUTO) 2.84 MIL/uL (4.5-6.0); WHITE BLOOD COUNT (AUTO) 7.6 K/uL (4.3-11.0)
[2019-04-13] MEDS: INSULIN LISPRO/ASPART 100 UNIT/ML CARTRIDGE SQ SCH ×2 (07:30→16:51)
[2019-04-13 07:31] LABS: ALBUMIN 2.3 g/dL (3.4-5.0); BILIRUBIN,TOTAL 0.2 mg/dL (0.2-1.0); CALCIUM, SERUM 6.9 mg/dL (8.5-10.1); CREATININE 5.1 mg/dL (0.6-1.3); MAGNESIUM 1.9 mg/dL (1.8-2.4); PHOSPHORUS 7.8 mg/dL (2.5-4.9); TOTAL PROTEIN, SERUM 5.7 g/dL (6.4-8.2)
--- NOTE | 2019-04-13 07:37 | NUR ---
VAMP MARKER OPENING NOTES RECEIVED PT ASLEEP, EASILY AROUSED. A/O X4. ON SUPPLEMENTAL OXYGEN AT 2LPM VIA NC, WITH NO ACUTE RESPIRATORY DISTRESS NOTED. PT DENIES PAIN OR ANY DISCOMFORT AT THIS TIME. PT ALSO DENIES QUESTIONS AND CONCERNS. PT ON TELEMONITORING WITH SR, HR OF 82. PIV TO RAC 20, FLUSHED WITH NS, INTACT AND OPERATIONAL. PT KEPT COMFORTABLE. PT'S BED IN LOWEST, LOCKED POSITION WITH SR X2. CALL LIGHT KEPT WITHIN REACH. WILL CONTINUE PLAN OF CARE.
[2019-04-13] MEDS: PANTOPRAZOLE 40 MG TABLET.DR PO SCH (07:55)
[2019-04-13 08:00] VITALS: BP 136/81
[2019-04-13] MEDS: ASPIRIN 81 MG TAB.CHEW PO SCH (08:23)
[2019-04-13] MEDS: INSULIN GLARGINE, 100 UNIT/ML CARTRIDGE SQ SCH (08:23)
[2019-04-13] MEDS: CALCIUM ACETATE 667 MG TABLET PO SCH ×3 (08:23→17:03)
[2019-04-13] MEDS: NICOTINE PATCH (14MG) 14 MG PATCH.TD24 TD SCH (08:23)
[2019-04-13] MEDS: CEFTRIAXONE 1 G in IV D5W 50 ML IV SCH (10:21)
[2019-04-13] MEDS: AZITHROMYCIN 500 MG in IV D5W 250 ML IV SCH (11:09)
[2019-04-13] MEDS: INSULIN REGULAR, HUMAN 100 UNIT/ML 3 ML VIAL SQ PRN ×2 (12:00→17:06)
--- NOTE | 2019-04-13 14:01 | NUR ---
RN NOTES SEEN AND EVALUATED BY DR GALE/CARDIO. PT DENIES PAIN AT THIS MOMENT. PT ONLY STATES THAT PAIN ONLY TAKES PLACE WHEN HE DO DEEP BREATHS. MD ORDERED 2D ECHO. WILL CONTINUE TO MONITOR PT.
[2019-04-13 16:00] VITALS: BP 133/86
[2019-04-13] MEDS: LACTOBACILLUS RHAMNOSUS GG 1 EACH CAP.SPRINK PO SCH (16:52)
--- NOTE | 2019-04-13 19:30 | NUR ---
94RN NOTES RECEIVED PT. AWAKE ON BED, A/OX4, AMBULATORY, SR ON TELEMONITOR HR-94, SWISS/GIBRALTARIAN SPEAKING, DENIES PAIN, NO SOB, CALL LIGHT WITHIN REACH, [id number], CONTINUE TO MONITOR
--- NOTE | 2019-04-13 19:32 | NUR ---
SLUDGE CONTROL OPERATOR CLOSING NOTES PT REMAINS AWAKE AND RESTING IN BED. A/O X4. TOLERATING RA AT THIS MOMENT, WITH NO ACUTE RESPIRATORY DISTRESS NOTED. PT DENIES PAIN OR ANY DISCOMFORT AT THIS TIME. PT ON TELEMONITORING WITH SR, HR OF 86. PIV TO RAC 20 SL, FLUSHED WITH NS, INTACT AND OPERATIONAL. PT ABLE TO MAKE NEEDS KNOWN. ALL NEEDS AND CARE ATTENDED. PT KEPT COMFORTABLE. PT'S BED IN LOWEST, LOCKED POSITION WITH SR X2. CALL LIGHT KEPT WITHIN REACH. ENDORSED TO NIGHT NURSE FOR MARY LOU.
[2019-04-13 20:00] VITALS: BP 134/80
[2019-04-13] MEDS: CARVEDILOL 3.125 MG TABLET PO SCH (21:56)
[2019-04-13] MEDS: ATORVASTATIN 10 MG TABLET PO SCH (21:56)
[2019-04-14] VITALS: BP 130/76
[2019-04-14 04:00] VITALS: BP 131/76
[2019-04-14] MEDS: INSULIN REGULAR, HUMAN 100 UNIT/ML 3 ML VIAL SQ PRN ×4 (06:35→22:16)
[2019-04-14 06:37] LABS: BASOPHILS # (AUTO) 0.1 /CMM (0.0-0.2); BASOPHILS % (AUTO) 0.8 % (0.0-2.0); EOSINOPHILS % (AUTO) 6.7 % (0.0-6.0); HEMATOCRIT 23 % (39-51); HEMOGLOBIN 7.8 g/dL (13.5-17.5); LYMPHOCYTES # (AUTO) 1.7 /CMM (0.8-4.8); LYMPHOCYTES % (AUTO) 23.2 % (20.0-44.0); MEAN CORPUSCULAR HGB CONC 34 g/dl (31.0-36.0); MEAN CORPUSCULAR VOLUME 87 fL (80-96); MONOCYTES # (AUTO) 0.4 /CMM (0.1-1.30); MONOCYTES % (AUTO) 5.1 % (2.0-12.0); NEUTROPHILS # (AUTO) 4.7 /CMM (1.8-8.9); NEUTROPHILS % (AUTO) 64.2 % (43.0-81.0); PLATELET COUNT (AUTO) 185 /CMM (150-450); RED BLOOD CELL COUNT(AUTO) 2.66 MIL/uL (4.5-6.0); WHITE BLOOD COUNT (AUTO) 7.3 K/uL (4.3-11.0)
[2019-04-14] MEDS: BLOOD SUGAR DIAGNOSTIC 1 EACH STRIP IN SCH ×4 (06:40→22:09)
--- NOTE | 2019-04-14 06:42 | NUR ---
RN NOTES AWAKE DENIES PAIN, NO SOB, MORNING CARE RENDERED, CALL LIGHT WITHIN REACH, SIDERAILSUPX2, PT. NEEDS ATTENDED
[2019-04-14 06:43] LABS: CALCIUM, SERUM 6.6 mg/dL (8.5-10.1); CREATININE 5.6 mg/dL (0.6-1.3); POTASSIUM 4.6 mmol/L (3.5-5.1)
--- NOTE | 2019-04-14 07:27 | NUR ---
CABIN MAN OPENING NOTES RECEIVED PT AWAKE, A/O X4. TOLERATING RA, WITH NO ACUTE RESPIRATORY DISTRESS NOTED. PT DENIES PAIN AND DISCOMFORT. PT ON TELEMONITORING SR, HR 89. PIV RAC G20, FLUSHED WITH NS, INTACT AND OPERATIONAL. PT DENIES ANY CONCERNS OR QUESTIONS AT THIS TIME. PT KEPT COMFORTABLE. PT'S BED IN LOWEST, LOCKED POSITION WITH SR X2. CALL LIGHT KEPT WITHIN REACH. WILL CONTINUE PLAN OF CARE.
[2019-04-14] MEDS: PANTOPRAZOLE 40 MG TABLET.DR PO SCH (08:24)
[2019-04-14] MEDS: INSULIN LISPRO/ASPART 100 UNIT/ML CARTRIDGE SQ SCH ×2 (08:25→17:17)
[2019-04-14] MEDS: INSULIN GLARGINE, 100 UNIT/ML CARTRIDGE SQ SCH (08:26)
[2019-04-14] MEDS: CARVEDILOL 3.125 MG TABLET PO SCH ×2 (08:27→20:56)
[2019-04-14] MEDS: NICOTINE PATCH (14MG) 14 MG PATCH.TD24 TD SCH (08:27)
[2019-04-14] MEDS: ASPIRIN 81 MG TAB.CHEW PO SCH (08:27)
[2019-04-14] MEDS: CALCIUM ACETATE 667 MG TABLET PO SCH ×3 (08:27→17:16)
[2019-04-14] MEDS: LACTOBACILLUS RHAMNOSUS GG 1 EACH CAP.SPRINK PO SCH ×2 (08:27→17:16)
[2019-04-14 09:25] VITALS: BP 119/74
[2019-04-14] MEDS: CEFTRIAXONE 1 G in IV D5W 50 ML IV SCH (10:09)
[2019-04-14] MEDS ORDERED: AZITHROMYCIN 250 MG TABLET PO SCH (12:00)
--- NOTE | 2019-04-14 14:35 | NUR ---
RN NOTES DR GALE CAME AND SAW PT. INFORMED OF SAME PLANS. WILL CONTINUE TO MONITOR PT.
[2019-04-14 16:00] VITALS: BP 115/67
--- NOTE | 2019-04-14 18:59 | NUR ---
FORENSIC STRUCTURAL ENGINEER CLOSING NOTES PT REMAINS IN BED, A/O X4. TOLERATING RA, WITH NO ACUTE RESPIRATORY DISTRESS NOTED. PT DENIES PAIN AND DISCOMFORT. 1 FAMILY MEMBER PRESENT BEDSIDE. PT ON TELEMONITORING SR, HR 84. PIV RAC G20, FLUSHED WITH NS, INTACT AND OPERATIONAL. PT ABLE TO MAKE NEEDS KNOWN. ALL NEEDS AND CARE ATTENDED. PT KEPT COMFORTABLE. PT'S BED IN LOWEST, LOCKED POSITION WITH SR X2. CALL LIGHT KEPT WITHIN REACH. WILL ENDORSE TO INCOMING NIGHT NURSE FOR MARY LOU.
--- NOTE | 2019-04-14 19:45 | NUR ---
CUSTOMER SERVICES SUPERVISOR NOTES RECEIVED SITTING ON EDGE OF BED,ALERT,ORIENTED X4,SPEAK NORTH KOREAN AND GREENLANDIC..LIDIA DISCOMFORTS AT THE MOMENT.SALINE LOCK RIGHT AC INTACT AND PATENT.CALL LIGHT IN REACH,NEEDS ANTICIPATED.
[2019-04-14 20:00] VITALS: BP 151/86
[2019-04-14] MEDS: ATORVASTATIN 10 MG TABLET PO SCH (22:08)
[2019-04-14] MEDS: TAMSULOSIN 0.4 MG CAP.SR.24H PO SCH (22:08)
--- NOTE | 2019-04-14 22:15 | NUR ---
PROFILE MILL OPERATOR TAPE CONTROL NOTES ACCU-CHECK BLOOD SUGAR CHECK 214MG/DL,COVERED WITH HUMULIN R 4 UNITS PER SLIDING SCALE.
[2019-04-15] VITALS: BP 124/72
[2019-04-15 04:00] VITALS: BP_SYST 124; BP_SYST 125; BP_DIAS 67
[2019-04-15 06:39] LABS: BASOPHILS # (AUTO) 0.1 /CMM (0.0-0.2); BASOPHILS % (AUTO) 0.9 % (0.0-2.0); EOSINOPHILS % (AUTO) 5.9 % (0.0-6.0); HEMATOCRIT 24 % (39-51); HEMOGLOBIN 7.9 g/dL (13.5-17.5); LYMPHOCYTES # (AUTO) 1.5 /CMM (0.8-4.8); LYMPHOCYTES % (AUTO) 19.4 % (20.0-44.0); MEAN CORPUSCULAR HGB CONC 33 g/dl (31.0-36.0); MEAN CORPUSCULAR VOLUME 88 fL (80-96); MONOCYTES # (AUTO) 0.4 /CMM (0.1-1.30); MONOCYTES % (AUTO) 5.3 % (2.0-12.0); NEUTROPHILS # (AUTO) 5.5 /CMM (1.8-8.9); NEUTROPHILS % (AUTO) 68.5 % (43.0-81.0); PLATELET COUNT (AUTO) 185 /CMM (150-450)
--- NOTE | 2019-04-15 06:59 | NUR ---
AIR MOVING TECHNICIAN NOTES FAIRLY RESTED AT NIGHT,DENIES DISCOMFORTS.CALL LIGHT IN REACH,NEEDS ATTENDED.WILL ENDORSE TO DAY NURSE FOR MARY LOU.
[2019-04-15 07:05] LABS: CALCIUM, SERUM 6.4 mg/dL (8.5-10.1); CREATININE 5.7 mg/dL (0.6-1.3)
--- NOTE | 2019-04-15 07:15 | NUR ---
net software developer Opening Note Patient currently resting in bed with eyes open in Semi-Fowlers position, no acute distress noted. Easily arousable to verbal stimuli. Alert and oriented x4, able to make needs known. No acute distress noted. Respirations even and unlabored on room air. External athletic monitor in place: current rhythm normal sinus at 88 bpm. Peripheral IV access to the right AC 20 gauge, intact, patent and saline locked. Safety and fall precautions in place: bed in lowest and locked position, side rails up x2, bed alarm on, call light and personal possessions in reach, room well lit, floor clutter-free. Patient currently clean, dry and comfortable. Will continue to monitor and intervene as needed.
[2019-04-15] MEDS: PANTOPRAZOLE 40 MG TABLET.DR PO SCH (07:30)
[2019-04-15] MEDS: BLOOD SUGAR DIAGNOSTIC 1 EACH STRIP IN SCH ×4 (07:55→21:40)
[2019-04-15] MEDS: INSULIN LISPRO/ASPART 100 UNIT/ML CARTRIDGE SQ SCH ×2 (07:58→17:19)
[2019-04-15] MEDS: INSULIN REGULAR, HUMAN 100 UNIT/ML 3 ML VIAL SQ PRN ×4 (08:04→21:42)
[2019-04-15 08:45] VITALS: BP 127/76
[2019-04-15] MEDS: INSULIN GLARGINE, 100 UNIT/ML CARTRIDGE SQ SCH (09:00)
[2019-04-15] MEDS: CALCIUM ACETATE 667 MG TABLET PO SCH ×3 (09:18→17:13)
[2019-04-15] MEDS: LACTOBACILLUS RHAMNOSUS GG 1 EACH CAP.SPRINK PO SCH ×2 (09:18→17:13)
[2019-04-15] MEDS: CARVEDILOL 3.125 MG TABLET PO SCH ×2 (09:18→21:39)
[2019-04-15] MEDS: ASPIRIN 81 MG TAB.CHEW PO SCH (09:18)
[2019-04-15] MEDS: NICOTINE PATCH (14MG) 14 MG PATCH.TD24 TD SCH (09:18)
[2019-04-15] MEDS: AZITHROMYCIN 250 MG TABLET PO SCH (11:14)
[2019-04-15 14:11] LABS: *SPE A/G RATIO 0.9 (0.7-1.7); *SPE ALBUMIN 2.4 g/dL (2.9-4.4); *SPE ALPHA-1-GLOBULIN 0.3 g/dL (0.0-0.4); *SPE ALPHA-2-GLOBULIN 0.7 g/dL (0.4-1.0); *SPE BETA GLOBULIN 0.8 g/dL (0.7-1.3); *SPE GLOBULIN, TOTAL 2.8 g/dL (2.2-3.9); *SPE M-SPIKE Not Observed g/dL (Not Observed)
[2019-04-15 16:23] VITALS: BP 119/73
--- NOTE | 2019-04-15 19:25 | NUR ---
RN OPEN NOTES RECEIVED PATIENT AWAKE IN BED. A/O X4. NO SIGNS OF DISTRESS OR DISCOMFORT. BREATHING EVEN AND UNLABORED. IV ACCESS IN RAC, PATENT AND INTACT, NO SIGNS OF REDNESS OR INFILTRATION. BED IN LOW LOCKED POSITION WITH SIDE RAILS X2. CALL LIGHT WITHIN REACH. WILL CONTINUE TO MONITOR.
--- NOTE | 2019-04-15 19:33 | NUR ---
MS RN Closing Note Patient currently resting in bed with eyes open in Semi-Fowlers position, no acute distress noted. Easily arousable to verbal stimuli. Alert and oriented x4, able to make needs known. No acute distress noted. Respirations even and unlabored on room air. Peripheral IV access to the right AC 20 gauge, intact, patent and saline locked. Safety and fall precautions in place: bed in lowest and locked position, side rails up x2, bed alarm on, call light and personal possessions in reach, room well lit, floor clutter-free. Patient currently clean, dry and comfortable. All needs attended to. Medications given as ordered, urine sample collected. Endorsed to general utility machine operator RN for continuity of care.
[2019-04-15 20:00] VITALS: BP 129/75
[2019-04-15] MEDS: ATORVASTATIN 10 MG TABLET PO SCH (21:40)
[2019-04-15] MEDS: TAMSULOSIN 0.4 MG CAP.SR.24H PO SCH (21:40)
[2019-04-15 23:00] LABS: CREATININE, URINE 53.4 MG/DL (30.0-125.0)
--- NOTE | 2019-04-16 05:48 | NUR ---
RN NOTES PATIENT REFUSED AM LAB DRAW X3. STATES HE WILL ALLOW THEM TO DRAW TOMORROW. PATIENT EDUCATION REGARDING NEED TO MONITOR BLOOD WORK REINFORCED AND PATIENT VERBALIZED UNDERSTANDING. WILL CONTINUE TO MONITOR.
[2019-04-16] MEDS: BLOOD SUGAR DIAGNOSTIC 1 EACH STRIP IN SCH ×4 (06:31→21:42)
[2019-04-16] MEDS: INSULIN REGULAR, HUMAN 100 UNIT/ML 3 ML VIAL SQ PRN ×4 (06:33→21:39)
--- NOTE | 2019-04-16 06:58 | NUR ---
RN CLOSING NOTES PATIENT AWAKE IN BED. A/O X4. NO SIGNS OF DISTRESS OR DISCOMFORT. BREATHING EVEN AND UNLABORED. IV ACCESS IN RAC, PATENT AND INTACT, NO SIGNS OF REDNESS OR INFILTRATION. ALL NEEDS MET. NO SIGNIFICANT CHANGES THROUGH THE NIGHT. BED IN LOW LOCKED POSITION WITH SIDE RAILS X2. CALL LIGHT WITHIN REACH. WILL ENDORSE TO AM SHIFT FOR MARY LOU.
[2019-04-16] MEDS: INSULIN LISPRO/ASPART 100 UNIT/ML CARTRIDGE SQ SCH ×2 (07:30→16:30)
--- NOTE | 2019-04-16 07:33 | NUR ---
MS RN OPENING NOTES PATIENT IN BED RESTING, AWAKE, ALERT AND ORIENTED X4. PATIENT BREATHING ON ROOM AIR. BREATHING IS EVEN AND UNLABORED. PATIENT IN NO ACUTE DISTRESS. NO SOB NOTED. PATIENT IS VIETNAMESE AND GREEK SPEAKING. PATIENT BED IS LOCKED AND IN LOW POSITION. PATIENT CALL LIGHT WITHIN REACH. WILL CONTINUE TO MONITOR.
[2019-04-16 08:00] VITALS: BP 141/77
[2019-04-16] MEDS: INSULIN GLARGINE, 100 UNIT/ML CARTRIDGE SQ SCH (08:34)
[2019-04-16] MEDS: ASPIRIN 81 MG TAB.CHEW PO SCH (08:53)
[2019-04-16] MEDS: LACTOBACILLUS RHAMNOSUS GG 1 EACH CAP.SPRINK PO SCH ×2 (08:53→17:47)
[2019-04-16] MEDS: CALCIUM ACETATE 667 MG TABLET PO SCH ×3 (08:53→17:47)
[2019-04-16] MEDS: NICOTINE PATCH (14MG) 14 MG PATCH.TD24 TD SCH (08:53)
[2019-04-16] MEDS: PANTOPRAZOLE 40 MG TABLET.DR PO SCH (08:54)
[2019-04-16] MEDS: CARVEDILOL 3.125 MG TABLET PO SCH ×2 (08:54→21:40)
[2019-04-16] MEDS: AZITHROMYCIN 250 MG TABLET PO SCH (13:09)
[2019-04-16 14:13] LABS: PTH, INTACT 380 pg/mL (15-65)
[2019-04-16 16:00] VITALS: BP 121/70
--- NOTE | 2019-04-16 19:00 | NUR ---
RN OPENING NOTE RECEIVED PT. PT STABLE AND RESTING IN BED. BEDSIDE. NO S/S OF RESP DISTRESS/SOB, NO C/O PAIN AT THIS TIME. PT HAS REFUSED AM LABS ON 04/16/19, AWARE. PT REQUESTING INFORMATION ON POC AND PRINTED INFORMATION REGARDING ALL TESTS/PROCEDURES DONE THUS FAR. SAFETY MEASURES IN PLACE, CALL LIGHT IN REACH. WILL CONT TO MONITOR.
--- NOTE | 2019-04-16 19:43 | NUR ---
MS RN CLOSING NOTES PATIENT IS IN BED RESTING. PATIENT IS ALERT AND ORIENTED X4. PATIENT IN NO ACUTE DISTRESS. PATIENT BREATHING ON ROOM AIR. PATIENT BREATHING IS EVEN AND UNLABORED. PATIENT IV IS INTACT. ALL NURSING NEEDS MET. SAFETY PRECAUTIONS ENFORCED. PATIENT KEPT CLEAN, DRY, AND COMFORTABLE. PATIENT BED IS LOCKED AND IN LOWEST POSITION. PATIENT CALL LIGHT WITHIN REACH. ENDORSED CARE TO PM SHIFT FOR CONTINUITY OF CARE.
[2019-04-16 20:00] VITALS: BP 131/79
[2019-04-16] MEDS: ATORVASTATIN 10 MG TABLET PO SCH (21:40)
[2019-04-16] MEDS: TAMSULOSIN 0.4 MG CAP.SR.24H PO SCH (21:40)
--- NOTE | 2019-04-17 06:58 | NUR ---
rn closing note PT STABLE. NO S/S OF RESP DISTRESS SOB. ALL PT NEEDS ANTICIPATED AND MET. SAFETY MEASURES IN PLACE. CALL LIGHT IN REACH. WILL ENDORSE TO DAY SHIFT FOR MARY LOU.
[2019-04-17] MEDS: INSULIN LISPRO/ASPART 100 UNIT/ML CARTRIDGE SQ SCH (07:30)
[2019-04-17 07:33] LABS: BASOPHILS # (AUTO) 0.1 /CMM (0.0-0.2); EOSINOPHILS % (AUTO) 6.4 % (0.0-6.0); HEMATOCRIT 23 % (39-51); HEMOGLOBIN 7.7 g/dL (13.5-17.5); LYMPHOCYTES # (AUTO) 1.8 /CMM (0.8-4.8); LYMPHOCYTES % (AUTO) 27.2 % (20.0-44.0); MEAN CORPUSCULAR HGB CONC 33 g/dl (31.0-36.0); MEAN CORPUSCULAR VOLUME 88 fL (80-96); MONOCYTES # (AUTO) 0.4 /CMM (0.1-1.30); MONOCYTES % (AUTO) 5.9 % (2.0-12.0); NEUTROPHILS % (AUTO) 59.5 % (43.0-81.0); PLATELET COUNT (AUTO) 192 /CMM (150-450); RED BLOOD CELL COUNT(AUTO) 2.65 MIL/uL (4.5-6.0); WHITE BLOOD COUNT (AUTO) 6.7 K/uL (4.3-11.0)
--- NOTE | 2019-04-17 07:42 | NUR ---
MS RN OPENING NOTES PATIENT RESTING IN BED BREATHING ON ROOM AIR. PATIENT IN NO ACUTE DISTRESS. NO SOB NOTED. PATIENT BREATHING IS EVEN AND UNLABORED. PATIENT BED LOCKED AND IN LOWEST POSITION. CALL LIGHT WITHIN REACH. SAFETY PRECAUTIONS IN PLACE. WILL CONTINUE TO MONITOR.
[2019-04-17 07:57] LABS: CALCIUM, SERUM 6.7 mg/dL (8.5-10.1); CREATININE 5.5 mg/dL (0.6-1.3); MAGNESIUM 2.2 mg/dL (1.8-2.4)
[2019-04-17 08:00] VITALS: BP 137/78
[2019-04-17] MEDS: BLOOD SUGAR DIAGNOSTIC 1 EACH STRIP IN SCH ×2 (08:00→12:00)
[2019-04-17] MEDS: CALCIUM ACETATE 667 MG TABLET PO SCH (08:00)
[2019-04-17] MEDS: PANTOPRAZOLE 40 MG TABLET.DR PO SCH (08:04)
[2019-04-17] MEDS: INSULIN REGULAR, HUMAN 100 UNIT/ML 3 ML VIAL SQ PRN (08:04)
[2019-04-17 08:12] LABS: PHOSPHORUS 9.2 mg/dL (2.5-4.9)
--- NOTE | 2019-04-17 08:42 | NUR ---
MS RN NOTES RECEIVED CALL FROM LAB. CRITICAL LAB VALUES BUN 89 AND PHOS 9.2. KENZIE VELEZ NP NOTIFIED AND MADE AWARE. NO NEW ORDERS. WILL CONTINUE TO MONITOR.
[2019-04-17] MEDS: NICOTINE PATCH (14MG) 14 MG PATCH.TD24 TD SCH (09:11)
[2019-04-17 09:12] VITALS: BP 137/78
[2019-04-17] MEDS: CARVEDILOL 3.125 MG TABLET PO SCH (09:12)
[2019-04-17] MEDS: ASPIRIN 81 MG TAB.CHEW PO SCH (09:12)
[2019-04-17] MEDS: LACTOBACILLUS RHAMNOSUS GG 1 EACH CAP.SPRINK PO SCH (09:12)
[2019-04-17] MEDS: INSULIN GLARGINE, 100 UNIT/ML CARTRIDGE SQ SCH (09:15)
[2019-04-17] MEDS: AZITHROMYCIN 250 MG TABLET PO SCH (12:00)
[2019-04-17] MEDS ORDERED: TAMS-12 PO (12:26)
[2019-04-17] MEDS ORDERED: ATOR10TA PO (12:26)
[2019-04-17] MEDS ORDERED: Calcium Acetate PO (12:26)
[2019-04-17] MEDS ORDERED: CARV3.122 PO (12:26)
--- NOTE | 2019-04-17 12:35 | NUR ---
MS RN NOTES PATIENT DISCHARGED HOME. PATIENT WAS SEEN BY DR. CHAO AND KENZIE PENNINGTON. DISCUSSED WITH PATIENT LAB RESULTS AND THE CONSEQUENCES OF REFUSING HD. PATIENT AGREED TO FOLLOW UP WITH DR. CHAO WITHIN 2 WEEKS FOR FOLLOW UP LABS. PATIENT STATES HE TAKES A SPECIAL TEA WHICH HELPS WITH HIS KIDNEYS. PATIENT CLEARED TO BE DISCHARGED HOME AND FOLLOW UP WITH NEPHROLOGY IN [address] FRAGA INFORMATION PROVIDED FOR FOLLOW UP ANOINTMENT. PATIENT ALERT, ORIENTED X4 VERBALIZES UNDERSTANDING OF DISCHARGE INSTRUCTIONS AND IMPORTANCE OF PATIENT CONDITION. PERIPHERAL IV REMOVED. ID BAND REMOVED. PATIENT EAGER TO LEAVE HOSPITAL. ALL BELONGINGS ACCOUNTED FOR. BELONGING LIST SIGNED. PATIENT ESCORTED TO CAR WITH FRIEND.
[2019-04-19 08:08] LABS: COMPLEMENT C3, SERUM 92 mg/dL (82-167); COMPLEMENT C4, SERUM 29 mg/dL (14-44)
== END 2019-04-17 12:39 | disposition home or self-care (01) | DRG 280 ==
LOC: ER 13:25 → TELE 16:04 → MED 04-15 11:02
PROVIDERS: ADMIT Nurse Practitioner Acute Care; ATTEND Nurse Practitioner Acute Care
PROC: 0W9B3ZZ Drainage of Left Pleural Cavity, Percutaneous Approach (ICD-10-PCS; principal; 2019-04-12)
DX: I13.2 Hypertensive heart and chronic kidney disease with heart failure and with stage 5 chronic kidney disease, or end stage renal disease (principal); I50.33 Acute on chronic diastolic (congestive) heart failure; I21.A1 Myocardial infarction type 2; J15.9 Unspecified bacterial pneumonia; N17.9 Acute kidney failure, unspecified; E44.0 Moderate protein-calorie malnutrition; N18.5 Chronic kidney disease, stage 5; J90 Pleural effusion, not elsewhere classified; Z68.1 Body mass index [BMI] 19.9 or less, adult; E11.22 Type 2 diabetes mellitus with diabetic chronic kidney disease; E11.65 Type 2 diabetes mellitus with hyperglycemia; E83.51 Hypocalcemia; E78.5 Hyperlipidemia, unspecified; F17.210 Nicotine dependence, cigarettes, uncomplicated; D63.1 Anemia in chronic kidney disease; R07.89 Other chest pain; E83.42 Hypomagnesemia; N40.0 Benign prostatic hyperplasia without lower urinary tract symptoms; E83.39 Other disorders of phosphorus metabolism
CPT/HCPCS: 36415; 71045-TC; 76942-TC; 80048-TC; 80053-TC; 80061-TC; 80076-TC; 81000-TC; 82550-TC; 82570-TC; 82962-TC; 83520; 83735-TC; 83880; 83970; 84100-TC; 84155; 84155-TC; 84165; 84300-TC; 84443-TC; 84484-TC; 85025-TC; 85730-TC; 86256; 86704; 86706; 86803; 87081-TC; 87340; 93307-TC; 94799-TC; A4216; G0378; J0360; J0456; J0696; J1815; J1940; J3475; J3490; J7060

== ENCOUNTER 2019-06-03 14:22 | Emergency (ER) | payer MEDICARE, OTHER ==
[~2019-06-03] VITALS: Ht 152.4 cm; Wt 52.2 kg
[~2019-06-03 14:22] MED LIST changes: +ATOR10TA PO; -CARV12.52 PO; +CARV3.122 PO; +Calcium Acetate PO; -LOSA1TAB39 PO; +TAMS-12 PO
[2019-06-03] MEDS ORDERED: ONDANSETRON HCL/PF 4 MG/2 ML VIAL ONE (14:59)
[2019-06-03] MEDS ORDERED: MORPHINE SULFATE INJ 2 MG/ML DISP.SYRIN IV ONE (15:00)
[2019-06-03] MEDS ORDERED: MORPHINE SULFATE INJ 4 MG/ML DISP.SYRIN ONE (15:00)
[2019-06-03] MEDS ORDERED: ONDANSETRON HCL/PF 4 MG/2 ML VIAL IVP ONE (15:00)
[2019-06-03 15:03] LABS: BASOPHILS # (AUTO) 0.1 /CMM (0.0-0.2); BASOPHILS % (AUTO) 1.1 % (0.0-2.0); EOSINOPHILS % (AUTO) 5.7 % (0.0-6.0); HEMATOCRIT 30 % (39-51); HEMOGLOBIN 9.5 g/dL (13.5-17.5); LYMPHOCYTES # (AUTO) 1.2 /CMM (0.8-4.8); LYMPHOCYTES % (AUTO) 17.4 % (20.0-44.0); MEAN CORPUSCULAR HGB CONC 32 g/dl (31.0-36.0); MEAN CORPUSCULAR VOLUME 89 fL (80-96); MONOCYTES # (AUTO) 0.4 /CMM (0.1-1.30); NEUTROPHILS % (AUTO) 70.8 % (43.0-81.0); PLATELET COUNT (AUTO) 233 /CMM (150-450); RED BLOOD CELL COUNT(AUTO) 3.33 MIL/uL (4.5-6.0); WHITE BLOOD COUNT (AUTO) 7.1 K/uL (4.3-11.0)
[2019-06-03 15:10] LABS: CREATININE 5.6 mg/dL (0.6-1.3); POTASSIUM 5.7 mmol/L (3.5-5.1)
--- NOTE | 2019-06-03 15:10 | NUR ---
"Abdominal pain s9lizae NOT better cant sleep because of pain". PT AAOX4, VSS. DENIES CP, SOB, DIZZINESS, N/V/D AT THIS TIME. PT SEEN & EVAL'D BY DR. FOUNTAIN. MEDICATED ORDERED FOR PAIN & WILL CONT TO MONITOR.
[2019-06-03 15:16] LABS: ALBUMIN 2.8 g/dL (3.4-5.0); BILIRUBIN,DIRECT 0.1 mg/dL (0.0-0.2); BILIRUBIN,TOTAL 0.2 mg/dL (0.2-1.0); TOTAL PROTEIN, SERUM 6.8 g/dL (6.4-8.2)
[2019-06-03] MEDS ORDERED: SODIUM POLYSTYRENE SULFONATE 15 G/60 ML BOTTLE PO ONE (16:30)
--- NOTE | 2019-06-03 16:54 | NUR ---
CALLED PHARM FOR KAYEXELATE.
[2019-06-03] MEDS ORDERED: SODIUM POLYSTYRENE SULFONATE 15 G/60 ML BOTTLE ONE (17:23)
[2019-06-03] MEDS ORDERED: LOSARTAN POTASSIUM (17:28)
--- NOTE | 2019-06-03 17:28 | NUR ---
PT STABLE, DENIES ABD PAIN, N/V/D, DIZZINESS OR ANY OTHER DISCOMFORT AT THIS TIME. WILL CONT TO MONITOR.
--- NOTE | 2019-06-03 17:57 | NUR ---
IV removed. Catheter intact and site benign. Pressure and 4x4 applied to site. No bleeding noted.
--- NOTE | 2019-06-03 17:57 | NUR ---
PT. VERBALIZED UNDERSTANDING OF AFTERCARE INSTRUCTIONS.Patient discharged to home in stable condition. Written and verbal after care instructions given. Patient verbalizes understanding of instruction.
[2019-06-03 18:04] VITALS: BP 147/78
== END 2019-06-03 18:05 | disposition home or self-care (01) ==
LOC: ER 14:25
DX: R10.31 Right lower quadrant pain (principal); R91.8 Other nonspecific abnormal finding of lung field; F17.200 Nicotine dependence, unspecified, uncomplicated; E78.5 Hyperlipidemia, unspecified; E11.22 Type 2 diabetes mellitus with diabetic chronic kidney disease; I12.9 Hypertensive chronic kidney disease with stage 1 through stage 4 chronic kidney disease, or unspecified chronic kidney disease; N18.9 Chronic kidney disease, unspecified; Z79.4 Long term (current) use of insulin; Z79.82 Long term (current) use of aspirin; Z79.899 Other long term (current) drug therapy
CPT/HCPCS: 36415; 71045; 71250; 74176; 80048; 80076; 85025; 93005; 96374; 96375; 99284; 99406; J2270; J2405

== ENCOUNTER 2019-08-03 10:16 | Inpatient (IN) | payer MEDICARE, OTHER ==
[~2019-08-03] VITALS: Ht 180.3 cm; Wt 49.1 kg
[~2019-08-03 10:16] MED LIST changes: -ATOR10TA PO; -CARV3.122 PO; -Calcium Acetate PO; +LOSARTAN POTASSIUM
--- NOTE | 2019-08-03 10:43 | NUR ---
BIB SON C/O WEAKNESS, RLQ ABDOMINAL PAIN WORST TODAY, CHRONIC STATES X "40 DAYS". ON ROOM AIR, BREATHING EVENLY AND UNLABORED. CONNECTED TO THE MONITOR AND PULSE OX. KEPT COMFORTABLE, WILL CONTINUE TO MONITOR ACCORDINGLY.
[2019-08-03 10:47] LABS: BASOPHILS # (AUTO) 0.2 /CMM (0.0-0.2); BASOPHILS % (AUTO) 0.9 % (0.0-2.0); EOSINOPHILS % (AUTO) 1.9 % (0.0-6.0); HEMATOCRIT 29 % (39-51); HEMOGLOBIN 9.4 g/dL (13.5-17.5); LYMPHOCYTES # (AUTO) 1.3 /CMM (0.8-4.8); LYMPHOCYTES % (AUTO) 6.5 % (20.0-44.0); MEAN CORPUSCULAR HGB CONC 32 g/dl (31.0-36.0); MEAN CORPUSCULAR VOLUME 89 fL (80-96); MONOCYTES # (AUTO) 1.3 /CMM (0.1-1.30); MONOCYTES % (AUTO) 6.6 % (2.0-12.0); NEUTROPHILS # (AUTO) 17.1 /CMM (1.8-8.9); NEUTROPHILS % (AUTO) 84.1 % (43.0-81.0); PLATELET COUNT (AUTO) 340 /CMM (150-450); RED BLOOD CELL COUNT(AUTO) 3.29 MIL/uL (4.5-6.0); WHITE BLOOD COUNT (AUTO) 20.3 K/uL (4.3-11.0)
[2019-08-03 11:22] LABS: ALANINE AMINOTRANSFERASE 14 U/L (12-78); ALBUMIN 2.5 g/dL (3.4-5.0); ALKALINE PHOSPHATASE 176 U/L (46-116); ASPARTATE AMINOTRANSFERASE 16 U/L (15-37); BILIRUBIN,DIRECT 0.1 mg/dL (0.0-0.2); BILIRUBIN,TOTAL 0.2 mg/dL (0.2-1.0); CALCIUM, SERUM 8.1 mg/dL (8.5-10.1); CARBON DIOXIDE 21 mmol/L (21-32); CHLORIDE 98 mmol/L (98-107); CREATININE 5.4 mg/dL (0.6-1.3); LIPASE 24 U/L (73-393); SODIUM SERUM 134 mmol/L (136-145); TOTAL PROTEIN, SERUM 6.9 g/dL (6.4-8.2)
[2019-08-03 11:23] LABS: GLUCOSE 422 mg/dL (74-106)
[2019-08-03 11:24] LABS: UREA NITROGEN, BLOOD 85 mg/dL (7-18)
[2019-08-03] MEDS ORDERED: LOSA1TAB39 PO (11:44)
[2019-08-03] MEDS ORDERED: CARV12.52 PO (11:46)
[2019-08-03] MEDS ORDERED: FURO20TA4 PO (11:46)
[2019-08-03] MEDS ORDERED: IV NS 0.9% 1,000 ML BAG IV ONE (12:00)
[2019-08-03] MEDS ORDERED: ACETAMINOPHEN ES 500 MG TABLET PO ONE (12:00)
[2019-08-03] MEDS ORDERED: ACETAMINOPHEN ES 500 MG TABLET ONE (12:07)
--- NOTE | 2019-08-03 12:15 | NUR ---
MEDICATED PER ERMD ORDER, PT DARLENE WELL.
--- NOTE | 2019-08-03 12:18 | NUR ---
CALLED HOUSE [facility] FOR MS BED
--- NOTE | 2019-08-03 12:53 | NUR ---
313-2 MS BED GIVEN
--- NOTE | 2019-08-03 14:26 | NUR ---
REPORT GIVEN TO ABHI MARLEY FOR MARY LOU
[2019-08-03 14:45] VITALS: BP 116/61
--- NOTE | 2019-08-03 14:45 | NUR ---
MS GRILL CHEF NOTE PT ARRIVED VIA GURNEY ACCOMPANIED BY ER STAFF. PT ABLE TO WALK WITH STANDBY ASSIST. PT IS A/O X4, AFEBRILE. RESPIRATIONS ARE EVEN AND UNLABORED, NOT IN ANY ACUTE DISTRESS NOTED. PUPILS ARE REACTIVE TO LIGHT, BILATERAL HAND COASTAL TUG MATE ARE STRONG AND EQUAL. ABDOMEN IS SOFT AND NONDISTENDED, BOWEL SOUNDS ARE PRESENT IN ALL 4 QUADRANTS UPON AUSCULTATION. PT C/O PAIN 5/10 TO RLQ, BUT DOES NOT WANT ANYTHING FOR PAIN. DENIES ANY BLADDER DISCOMFORT. DENIES ANY N/V. NO SKIN ISSUES NOTED. SKIN IS KEPT CLEAN, DRY AND INTACT. IV SITE TO RAC G18 INTACT, NO INFILTRATION NOTED. DRESSING KEPT CLEAN AND DRY. SAFETY MEASURES ARE IN PLACE. INSTRUCTED PT TO USE CALL LIGHT WHEN ASSISTANCE IS NEEDED, CALL LIGHT IS LEFT WITHIN REACH. DR. CORTES MADE AWARE OF ADMISSION W/ ORDERS NOTED AND CARRIED OUT. WILL MONITOR THROUGHOUT SHIFT FOR CONTINUITY OF CARE.
[2019-08-03 16:00] VITALS: BP 116/61
[2019-08-03] MEDS ORDERED: ZOLPIDEM TARTRATE 5 MG TABLET PO PRN (16:00)
[2019-08-03] MEDS ORDERED: MAGNESIUM HYDROXIDE 30 ML UDC PO PRN (16:00)
[2019-08-03] MEDS ORDERED: Z GUARD REMEDY 2 OZ OINT TP PRN (16:00)
[2019-08-03] MEDS ORDERED: MAG HYDROX/AL HYDROX/SIMETH 30 ML UDC PO PRN (16:00)
[2019-08-03] MEDS ORDERED: MORPHINE SULFATE INJ 2 MG/ML DISP.SYRIN IV PRN (16:00)
[2019-08-03] MEDS ORDERED: DEXTROSE 50%-WATER 50 ML DISP.SYRIN IV PRN (16:00)
[2019-08-03] MEDS ORDERED: ACETAMINOPHEN 325 MG TABLET PO PRN (16:00)
[2019-08-03] MEDS ORDERED: ONDANSETRON HCL/PF 4 MG/2 ML VIAL IVP PRN (16:00)
[2019-08-03] MEDS: IV NS 0.9% 1,000 ML IV PRN (16:06)
[2019-08-03] MEDS: CEFTRIAXONE 1 G in IV D5W 50 ML IV SCH (16:29)
[2019-08-03] MEDS: BLOOD SUGAR DIAGNOSTIC 1 EACH STRIP IN SCH ×2 (16:41→21:53)
[2019-08-03] MEDS: INSULIN REGULAR, HUMAN 100 UNIT/ML 3 ML VIAL SQ PRN ×2 (16:43→21:54)
--- NOTE | 2019-08-03 18:50 | NUR ---
MS RN CLOSING NOTES ALL DUE MEDS GIVEN, NEEDS MET AND RENDERED. PT IS A/O X4, AFEBRILE. RESPIRATIONS ARE EVEN AND UNLABORED, NOT IN ANY ACUTE DISTRESS NOTED. PT DENIES ANY PAIN AT THIS TIME, NO C/O SOB, N/V. IV SITE TO RAC G18 INTACT, NO INFILTRATION NOTED. DRESSING KEPT CLEAN AND DRY. IV FLUIDS RUNNING AT 75ML/HR, TOLERATING WELL. SAFETY MEASURES ARE IN PLACE. WILL ENDORSE TO NEXT SHIFT FOR CONTINUITY OF CARE.
--- NOTE | 2019-08-03 19:30 | NUR ---
MS RN NOTES RECEIVED LAYING ON BED,A/O X4,IVF NS AT 75ML/HR RATE IN PROGRESS VIA IV PUMP ON RIGHT AC,SITE PATENT.COMPLAINTS OF MILD,TOLERABLE PAIN ON RIGHT ABDOMEN.NO OTHER DISCOMFORTS.CALL LIGHT IN REACH,NEEDS ANTICIPATED.
[2019-08-03 20:00] VITALS: BP 148/75
--- NOTE | 2019-08-03 20:00 | NUR ---
MS RN NOTES REFUSED TO HAVE IVF THIS TIME,PUT IVF ON HOLD
--- NOTE | 2019-08-03 21:40 | NUR ---
MS RN NOTES ACCU-CHECK BLOOD SUGAR CHECK 388MG/DL,HUMULIN R 10 UNITS GIVEN PER SLIDING SCALE.
--- NOTE | 2019-08-03 22:00 | NUR ---
MS RN NOTES SNACKS PROVIDED AT BEDSIDE.
[2019-08-03 23:50] LABS: APPEARANCE,URINE CLEAR (CLEAR); BILIRUBIN,URINE NEGATIVE (NEGATIVE); BLOOD, URINE 1+ Ery/uL (NEGATIVE); COLOR,URINE YELLOW (YELLOW); KETONES,URINE NEGATIVE (NEGATIVE); LEUKOCYTE ESTERASE ,URINE NEGATIVE (NEGATIVE); NITRITE, URINE NEGATIVE (NEGATIVE); PH,URINE 5.5 (5.0-8.0); PROTEIN,URINE 2+ mg/dl (NEGATIVE); UGLUCOSE 3+ mg/dL (NEGATIVE); UROBILINOGEN,URINE 0.2 EU/dL (0.2)
[2019-08-03 23:55] LABS: BACTERIA,URINE None seen /HPF (None Seen); HYALINE CASTS, URINE Rare /LPF (None Seen); SQUAMOUS EPITHELIAL CELL,UR Rare /HPF (None Seen); WBC,URINE 0-2 /HPF (0-3)
--- NOTE | 2019-08-04 01:38 | NUR ---
MS RN NOTES SLEEPING,KEPT WARM AND COMFORTABLE.
[2019-08-04] MEDS: BLOOD SUGAR DIAGNOSTIC 1 EACH STRIP IN SCH (05:42)
[2019-08-04] MEDS: INSULIN REGULAR, HUMAN 100 UNIT/ML 3 ML VIAL SQ PRN ×3 (05:47→18:12)
--- NOTE | 2019-08-04 06:00 | NUR ---
MS RN NOTES ACCU-CHECK BLOOD SUGAR CHECK 341,COVERED WITH HUMULIN R 8 UNITS PER SLIDING SCALE.
--- NOTE | 2019-08-04 06:40 | NUR ---
MS RN NOTES FAIRLY RESTED,SLEPT WELL AT NIGHT.BLOOD SUGAR REMAINS ELEVATED IN NO ACUTE.DISTRESS
[2019-08-04 07:17] LABS: BASOPHILS # (AUTO) 0.1 /CMM (0.0-0.2); BASOPHILS % (AUTO) 0.4 % (0.0-2.0); EOSINOPHILS % (AUTO) 2.2 % (0.0-6.0); HEMATOCRIT 27 % (39-51); HEMOGLOBIN 8.6 g/dL (13.5-17.5); LYMPHOCYTES # (AUTO) 1.3 /CMM (0.8-4.8); LYMPHOCYTES % (AUTO) 6.6 % (20.0-44.0); MEAN CORPUSCULAR HGB CONC 32 g/dl (31.0-36.0); MEAN CORPUSCULAR VOLUME 88 fL (80-96); MONOCYTES % (AUTO) 4.9 % (2.0-12.0); NEUTROPHILS % (AUTO) 85.9 % (43.0-81.0); PLATELET COUNT (AUTO) 327 /CMM (150-450); RED BLOOD CELL COUNT(AUTO) 3.03 MIL/uL (4.5-6.0); WHITE BLOOD COUNT (AUTO) 19.8 K/uL (4.3-11.0)
[2019-08-04 07:31] LABS: CALCIUM, SERUM 7.9 mg/dL (8.5-10.1); MAGNESIUM 1.8 mg/dL (1.8-2.4); PHOSPHORUS 6.9 mg/dL (2.5-4.9); POTASSIUM 4.2 mmol/L (3.5-5.1)
[2019-08-04 07:38] LABS: THYROID STIMULATING HORMONE 1.269 uIU/mL (0.358-3.74)
--- NOTE | 2019-08-04 07:56 | NUR ---
RN OPENING NOTES PT RESTING IN BED. NO APPARENT S/S OF PAIN, DISTRESS OR SOB AT THIS TIME. PT HAS A RIGHT AC #18 INTACT AND PATENT, REFUSING IV FLUIDS. WILL CONTINUE TO ENCOURAGE FLUIDS. SAFETY PRECAUTIONS IN PLACE, BED IN LOWEST LOCKED POSITION, X2 SIDE RAILS UP AND CALL LIGHT WITHIN REACH WILL CONTINUE TO MONITOR.
[2019-08-04 08:00] VITALS: BP 134/66
[2019-08-04] MEDS: HYDROCODONE/APAP 5/325MG 1 EACH TABLET PO PRN ×2 (09:27→22:31)
[2019-08-04] MEDS ORDERED: DEXTROSE 50%-WATER 50 ML DISP.SYRIN IV PRN (10:30)
[2019-08-04] MEDS: AZITHROMYCIN 500 MG in IV D5W 250 ML IV SCH (11:51)
[2019-08-04] MEDS: BLOOD SUGAR DIAGNOSTIC 1 EACH STRIP VI SCH ×3 (11:52→22:20)
[2019-08-04 16:00] VITALS: BP 153/78
[2019-08-04] MEDS: CEFTRIAXONE 1 G in IV D5W 50 ML IV SCH (16:28)
--- NOTE | 2019-08-04 16:44 | NUR ---
RN NOTES INITIAL ACCU CHEK 416 RECHECKED: 384, WILL COVER 15 UNITS. PT WILL START MASSIMO FRANKEL.
--- NOTE | 2019-08-04 18:42 | NUR ---
RN CLOSING NOTES PT RESTING IN BED. NO APPARENT S/S OF PAIN, DISTRESS OR SOB AT THIS TIME. PATIENT GIVEN NORCO FOR PAIN. PT HAS A RIGHT AC #18 INTACT AND RUNNING NS @75 ML/HR. SAFETY PRECAUTIONS IN PLACE, BED IN LOWEST LOCKED POSITION, X2 SIDE RAILS UP AND CALL LIGHT WITHIN REACH WILL ENDORSE TO BASEBALL PLAYER NURSE FOR CONTINUITY OF CARE.
--- NOTE | 2019-08-04 19:30 | NUR ---
MS RN NOTES RECEIVED ON BED SLEEPING,AROUSABLE TO VERBAL STIMULI,BREATHING NORMAL.NOT IN ANY FORM OF DISTRESS.SALINE LOCK LEFT AC INTACT AND PATENT.IVF IN PROGRESS AT 75ML/HR RATE IN PROGRESS VIA IV PUMP.DENIES DISCOMFORTS AT THE MOMENT.CALL LIGHT IN REACH,NEEDS ANTICIPATED.
[2019-08-04 20:00] VITALS: BP 142/78
--- NOTE | 2019-08-04 22:00 | NUR ---
MS RN NOTES ACCU-CHECK BLOOD SUGAR CHECK 167,COVERED WITH HUMULIN R 3 UNITS PER SLIDING SCALE,ALONG WITH LANTUS 12 UNITS SCHEDULED.
[2019-08-04] MEDS: *INSULIN REGULAR(HUMULIN R)HUM 100 UNIT/ML VIAL SQ PRN (22:27)
[2019-08-04] MEDS: INSULIN GLARGINE, 100 UNIT/ML CARTRIDGE SQ SCH (22:29)
--- NOTE | 2019-08-04 22:31 | NUR ---
MS RN NOTES PAIN MANAGEMENT C/O PAIN ON RIGHT ABDOMEN 6/10 ON PAIN SCALE.NORCO 5/325MG,1 TAB PO GIVEN
[2019-08-05] MEDS: IV NS 0.9% 1,000 ML IV PRN ×2 (00:31→17:47)
[2019-08-05] MEDS: BLOOD SUGAR DIAGNOSTIC 1 EACH STRIP VI SCH ×4 (05:56→21:18)
--- NOTE | 2019-08-05 06:00 | NUR ---
MS RN NOTES ACCU-CHECK BLOOD SUGAR CHECK 76,ASYMPTOMATIC FOR HYPOGLYCEMIA,APPLE JUICE WITH ADDED SUGAR AND VANILLA PUDDING GIVEN.WILL RECEHCK BLOOD SUGAR IN AN HOUR
--- NOTE | 2019-08-05 06:25 | NUR ---
MS RN NOTES SLEPT WELL WITH NORCO.STILL WITH ON OFF ABDOMINAL PAIN.IVF IN PROGRESS.BLOOD SUGAR CONTROLLED.IN NO ACUTE DISTRESS.WILL ENDORSE TO DAY NURSE FOR MARY LOU.
[2019-08-05 06:59] LABS: CALCIUM, SERUM 7.9 mg/dL (8.5-10.1)
[2019-08-05 07:00] LABS: BASOPHILS # (AUTO) 0.1 /CMM (0.0-0.2); BASOPHILS % (AUTO) 0.4 % (0.0-2.0); HEMATOCRIT 26 % (39-51); HEMOGLOBIN 8.7 g/dL (13.5-17.5); LYMPHOCYTES # (AUTO) 1.9 /CMM (0.8-4.8); LYMPHOCYTES % (AUTO) 7.9 % (20.0-44.0); MEAN CORPUSCULAR HGB CONC 33 g/dl (31.0-36.0); MEAN CORPUSCULAR VOLUME 88 fL (80-96); MONOCYTES # (AUTO) 1.1 /CMM (0.1-1.30); MONOCYTES % (AUTO) 4.3 % (2.0-12.0); NEUTROPHILS # (AUTO) 21.1 /CMM (1.8-8.9); NEUTROPHILS % (AUTO) 85.4 % (43.0-81.0); PLATELET COUNT (AUTO) 312 /CMM (150-450); RED BLOOD CELL COUNT(AUTO) 2.96 MIL/uL (4.5-6.0); WHITE BLOOD COUNT (AUTO) 24.7 K/uL (4.3-11.0)
[2019-08-05 08:00] VITALS: BP 133/65
--- NOTE | 2019-08-05 08:00 | NUR ---
RN OPENING NOTES PT RESTING IN BED. NO APPARENT S/S OF PAIN, DISTRESS OR SOB AT THIS TIME. PT HAS A LEFT FOREARM #20 INTACT AND RUNNING NS @75ML/HR. WILL CONTINUE TO ENCOURAGE PO INTAKE. SAFETY PRECAUTIONS IN PLACE, BED IN LOWEST LOCKED POSITION, X2 SIDE RAILS UP AND CALL LIGHT WITHIN REACH. WILL CONTINUE TO MONITOR.
[2019-08-05] MEDS: ASPIRIN 81 MG TAB.CHEW PO SCH (08:17)
[2019-08-05] MEDS: CARVEDILOL 12.5 MG TABLET PO SCH (08:17)
[2019-08-05] MEDS: HYDROCODONE/APAP 5/325MG 1 EACH TABLET PO PRN (08:18)
[2019-08-05] MEDS: LACTOBACILLUS RHAMNOSUS GG 1 EACH CAP.SPRINK PO SCH ×2 (09:29→16:55)
[2019-08-05 10:29] LABS: FREE PSA 0.32 ng/mL (0.00-45); PHOSPHORUS 6.8 mg/dL (2.5-4.9); PROSTATE SPECIFIC ANTIGEN SCR 0.92 ng/mL (0.00-4.00)
[2019-08-05] MEDS: AZITHROMYCIN 500 MG in IV D5W 250 ML IV SCH (11:42)
[2019-08-05] MEDS ORDERED: FEE PK DOSING 1 MIN EA MC ONE (15:25)
[2019-08-05 16:00] VITALS: BP 138/77
[2019-08-05] MEDS ORDERED: VANCOMYCIN 500 MG in IV D5W 100 ML IV SCH (16:00)
[2019-08-05] MEDS: MEROPENEM 500 MG in IV NS 0.9% 50 ML IV SCH (16:20)
[2019-08-05] MEDS: INSULIN REGULAR, HUMAN 100 UNIT/ML 3 ML VIAL SQ PRN (17:46)
--- NOTE | 2019-08-05 19:36 | NUR ---
RN CLOSING NOTES PT RESTING IN BED. NO APPARENT S/S OF PAIN, DISTRESS OR SOB AT THIS TIME. PATIENT GIVEN NORCO FOR PAIN. PT HAS A RIGHT AC #18 INTACT AND RUNNING NS @75 ML/HR. SAFETY PRECAUTIONS IN PLACE, BED IN LOWEST LOCKED POSITION, X2 SIDE RAILS UP AND CALL LIGHT WITHIN REACH WILL ENDORSE TO PNEUMATIC PRESS HAND NURSE FOR CONTINUITY OF CARE.
--- NOTE | 2019-08-05 19:50 | NUR ---
MS RN NOTE: PATIENT RESTING IN BED, NO ACUTE DISTRESS NOTED. BREATHING EVEN AND UNLABORED, NO SOB NOTED. IV TO LFA IN PLACE, INFUSING NS AT 75ML/HR. NO S/S OF HYPER/HYPOGLYCEMIA NOTED. BED LOCKED AND IN LOWEST POSITION, CALL LIGHT IN REACH. WILL CONTINUE TO MONITOR.
[2019-08-05 20:53] VITALS: BP 139/73
[2019-08-05] MEDS: LINEZOLID RTU BAG 600 MG in PREMIX 1 EA IV SCH (21:18)
[2019-08-05] MEDS: INSULIN GLARGINE, 100 UNIT/ML CARTRIDGE SQ SCH (21:43)
[2019-08-05] MEDS: *INSULIN REGULAR(HUMULIN R)HUM 100 UNIT/ML VIAL SQ PRN (21:44)
--- NOTE | 2019-08-05 22:15 | NUR ---
MS RN NOTE: PATIENT BLOOD SUGAR LEVEL 204MG/DL, PATIENT TO RECEIVE 4 UNITS OF INSULIN PER SLIDING SCALE AND LANTUS 12 UNITS PER MD ORDER. NO S/S OF HYPER/HYPOGLYCEMIA NOTED. WILL CONTINUE TO MONITOR.
[2019-08-05 23:19] LABS: APPEARANCE,URINE CLEAR (CLEAR); BILIRUBIN,URINE NEGATIVE (NEGATIVE); BLOOD, URINE TRACE Ery/uL (NEGATIVE); COLOR,URINE YELLOW (YELLOW); KETONES,URINE NEGATIVE (NEGATIVE); LEUKOCYTE ESTERASE ,URINE NEGATIVE (NEGATIVE); NITRITE, URINE NEGATIVE (NEGATIVE); PH,URINE 5.5 (5.0-8.0); PROTEIN,URINE 2+ mg/dl (NEGATIVE); UGLUCOSE 1+ mg/dL (NEGATIVE); UROBILINOGEN,URINE 0.2 EU/dL (0.2)
[2019-08-05 23:52] LABS: BACTERIA,URINE None seen /HPF (None Seen)
[2019-08-05 23:53] LABS: COARSE GRANULAR CASTS,URINE Few /LPF (None Seen); HYALINE CASTS, URINE Few /LPF (None Seen); MUCUS,URINE Few /LPF (None Seen); SQUAMOUS EPITHELIAL CELL,UR Few /HPF (None Seen)
[2019-08-06] MEDS: MEROPENEM 500 MG in IV NS 0.9% 50 ML IV SCH ×2 (05:15→16:27)
[2019-08-06] MEDS: IV NS 0.9% 1,000 ML IV PRN (05:16)
[2019-08-06] MEDS: INSULIN REGULAR, HUMAN 100 UNIT/ML 3 ML VIAL SQ PRN ×3 (06:12→17:58)
[2019-08-06] MEDS: BLOOD SUGAR DIAGNOSTIC 1 EACH STRIP VI SCH ×4 (06:36→21:19)
[2019-08-06] MEDS: HYDROCODONE/APAP 5/325MG 1 EACH TABLET PO PRN ×4 (06:36→21:23)
--- NOTE | 2019-08-06 06:45 | NUR ---
MS RN NOTE: PATIENT RESTING IN BED, NO ACUTE DISTRESS NOTED. BREATHING EVEN AND UNLABORED, NO SOB NOTED. IV TO LFA IN PLACE, INFUSING NS AT 75ML/HR. PATIENT BLOOD SUGAR LEVEL 229MG/DL, TO RECEIVE 6 UNITS PER SLIDING SCALE, NO S/S HYPER/HYPOGLYCEMIA NOTED. BED LOCKED AND IN LOWEST POSITION, CALL LIGHT IN REACH. WILL ENDORSE TO DAY NURSE TO CONTINUE WITH PLAN OF CARE.
[2019-08-06 06:47] LABS: BASOPHILS # (AUTO) 0.2 /CMM (0.0-0.2); BASOPHILS % (AUTO) 0.9 % (0.0-2.0); EOSINOPHILS % (AUTO) 2.4 % (0.0-6.0); HEMATOCRIT 26 % (39-51); HEMOGLOBIN 8.4 g/dL (13.5-17.5); LYMPHOCYTES # (AUTO) 1.2 /CMM (0.8-4.8); LYMPHOCYTES % (AUTO) 6.2 % (20.0-44.0); MEAN CORPUSCULAR HGB CONC 32 g/dl (31.0-36.0); MEAN CORPUSCULAR VOLUME 89 fL (80-96); MONOCYTES # (AUTO) 0.7 /CMM (0.1-1.30); MONOCYTES % (AUTO) 3.5 % (2.0-12.0); PLATELET COUNT (AUTO) 290 /CMM (150-450); RED BLOOD CELL COUNT(AUTO) 2.93 MIL/uL (4.5-6.0); WHITE BLOOD COUNT (AUTO) 19.5 K/uL (4.3-11.0)
[2019-08-06 06:51] LABS: CALCIUM, SERUM 7.6 mg/dL (8.5-10.1); CREATININE 4.7 mg/dL (0.6-1.3); POTASSIUM 4.1 mmol/L (3.5-5.1)
--- NOTE | 2019-08-06 07:30 | NUR ---
RN MS NOTES PT IN BED, ASLEEP, EASY TO AROUSE, ALERT AND ORIENTED, REASSESSED FOR PAIN, STATED HE IS STILL HAVING ABDOMINAL PAIN, RESPIRATIONS NORMAL AND NOT LABORED, IV FLUIDS INFUSING WELL, CALL LIGHT WITHIN REACH, NEEDS ATTENDED.
[2019-08-06 08:00] VITALS: BP 149/75
[2019-08-06] MEDS: LINEZOLID RTU BAG 600 MG in PREMIX 1 EA IV SCH ×2 (08:50→21:19)
[2019-08-06] MEDS: LACTOBACILLUS RHAMNOSUS GG 1 EACH CAP.SPRINK PO SCH ×2 (08:50→16:27)
[2019-08-06] MEDS: CARVEDILOL 12.5 MG TABLET PO SCH (08:51)
[2019-08-06] MEDS: ASPIRIN 81 MG TAB.CHEW PO SCH (08:51)
--- NOTE | 2019-08-06 13:00 | NUR ---
RN MS NOTES PT IN BED, ASLEEP, EASY TO AROUSE, PAIN MEDS GIVEN ORDERED, NOT IN DISTRESS, ENCOURAGED INCREASED PO INTAKE, VERBALIZED UNDERSTANDING, SEEN BY DR. COLLADO AND DR. WITT TODAY, PLAN OF CARE DISCUSSED WITH PT, VERBALIZED UNDERSTANDING, CALL LIGHT WITHIN REACH AT ALL TIMES, NEEDS ATTENDED.
[2019-08-06 16:00] VITALS: BP 115/60
--- NOTE | 2019-08-06 18:05 | NUR ---
RN MS NOTES PT IN BED, RESTING, PAIN MEDS GIVEN ORDERED, NO NAUSEA OR VOMITING, ENCOURAGED INCREASED ORAL INTAKE, NOT IN DISTRESS, PT REFUSED PM CARE, EXPLAINED IMPORTANCE, STILL REFUSED, SEEN BY DR. CAPONE, IV FLUIDS INFUSING WELL, CALL LIGHT WITHIN REACH.
[2019-08-06 20:00] VITALS: BP 151/73
[2019-08-06] MEDS: INSULIN GLARGINE, 100 UNIT/ML CARTRIDGE SQ SCH (21:31)
[2019-08-06] MEDS: *INSULIN REGULAR(HUMULIN R)HUM 100 UNIT/ML VIAL SQ PRN (21:33)
--- NOTE | 2019-08-06 21:45 | NUR ---
MS RN NOTE: PATIENT BLOOD SUGAR LEVEL 252MG/DL, PATIENT TO RECEIVE 6 UNITS OF INSULIN PER SLIDING SCALE AND LANTUS 12 UNITS PER MD ORDER. NO S/S OF HYPER/HYPOGLYCEMIA NOTED. PATIENT ALSO COMPLAINS OF ABDOMINAL PAIN 05/22, NORCO 5/325MG 1 TAB ORAL GIVEN PER MD ORDER. WILL CONTINUE TO MONITOR.
[2019-08-06] MEDS: DEXAMETHASONE SOD PHOSPHATE 4 MG/ML VIAL IV SCH (23:40)
[2019-08-07] MEDS: DEXAMETHASONE SOD PHOSPHATE 4 MG/ML VIAL IV SCH ×3 (05:20→18:50)
[2019-08-07] MEDS: IV NS 0.9% 1,000 ML IV PRN (05:20)
[2019-08-07] MEDS: MEROPENEM 500 MG in IV NS 0.9% 50 ML IV SCH ×2 (05:21→16:39)
--- NOTE | 2019-08-07 06:15 | NUR ---
MS RN NOTE: PATIENT RESTING IN BED, NO ACUTE DISTRESS NOTED. BREATHING EVEN AND UNLABORED, NO SOB NOTED. IV TO LFA IN PLACE, INFUSING NS AT 75ML/HR. PATIENT BLOOD SUGAR LEVEL 285MG/DL, TO RECEIVE 9 UNITS PER SLIDING SCALE, NO S/S HYPER/HYPOGLYCEMIA NOTED. BED LOCKED AND IN LOWEST POSITION, CALL LIGHT IN REACH. WILL ENDORSE TO DAY NURSE TO CONTINUE WITH PLAN OF CARE.
--- NOTE | 2019-08-07 06:38 | NUR ---
TEXTED DR. KAT FOR MRI APPROVAL.
[2019-08-07] MEDS: INSULIN REGULAR, HUMAN 100 UNIT/ML 3 ML VIAL SQ PRN ×3 (06:49→17:56)
[2019-08-07] MEDS: BLOOD SUGAR DIAGNOSTIC 1 EACH STRIP VI SCH ×4 (06:49→22:03)
[2019-08-07] MEDS: HYDROCODONE/APAP 5/325MG 1 EACH TABLET PO PRN (06:52)
--- NOTE | 2019-08-07 07:04 | NUR ---
MS RN NOTE: PATIENT COMPLAINS OF ABDOMINAL PAIN 05/22, NORCO 5/325MG 1 TAB ORAL GIVEN PER MD ORDER. WILL CONTINUE TO MONITOR.
--- NOTE | 2019-08-07 07:16 | NUR ---
MS RN NOTES PATIENT IN BED, ALERT ORIENTED X 3. NO ACUTE DISTRESS NOTED BREATHING UNLABORED. IV ACCESS PATENT AND INTACT, NO REDNESS OR SWELLING NOTED. SAFETY MEASURES IN PLACE. CALL LIGHT WITHIN REACH. WILL CONTINUE TO MONITOR ACCORDINGLY.
[2019-08-07 07:37] LABS: EOSINOPHILS % (AUTO) 0.1 % (0.0-6.0); HEMATOCRIT 28 % (39-51); HEMOGLOBIN 9.2 g/dL (13.5-17.5); LYMPHOCYTES # (AUTO) 0.4 /CMM (0.8-4.8); LYMPHOCYTES % (AUTO) 1.9 % (20.0-44.0); MEAN CORPUSCULAR HGB CONC 32 g/dl (31.0-36.0); MEAN CORPUSCULAR VOLUME 88 fL (80-96); MONOCYTES # (AUTO) 0.1 /CMM (0.1-1.30); MONOCYTES % (AUTO) 0.3 % (2.0-12.0); NEUTROPHILS # (AUTO) 18.2 /CMM (1.8-8.9); NEUTROPHILS % (AUTO) 97.7 % (43.0-81.0); PLATELET COUNT (AUTO) 301 /CMM (150-450); RED BLOOD CELL COUNT(AUTO) 3.23 MIL/uL (4.5-6.0); WHITE BLOOD COUNT (AUTO) 18.6 K/uL (4.3-11.0)
[2019-08-07 08:00] VITALS: BP 159/79
[2019-08-07 08:01] LABS: ALBUMIN 2.1 g/dL (3.4-5.0); BILIRUBIN,TOTAL 0.2 mg/dL (0.2-1.0); CALCIUM, SERUM 7.8 mg/dL (8.5-10.1); CREATININE 4.7 mg/dL (0.6-1.3); MAGNESIUM 1.5 mg/dL (1.8-2.4); PHOSPHORUS 7.8 mg/dL (2.5-4.9); POTASSIUM 4.3 mmol/L (3.5-5.1); TOTAL PROTEIN, SERUM 6.3 g/dL (6.4-8.2)
[2019-08-07] MEDS: LINEZOLID RTU BAG 600 MG in PREMIX 1 EA IV SCH ×2 (08:33→20:49)
[2019-08-07] MEDS: LACTOBACILLUS RHAMNOSUS GG 1 EACH CAP.SPRINK PO SCH ×2 (08:34→16:39)
[2019-08-07] MEDS: ASPIRIN 81 MG TAB.CHEW PO SCH (08:34)
[2019-08-07] MEDS: CARVEDILOL 12.5 MG TABLET PO SCH (08:34)
--- NOTE | 2019-08-07 10:34 | NUR ---
MS RN NOTES PROCALCITONIN LEVEL RESULTED CRITICALLY HIGH 28.21, RELAYED TO DR DOVER WITH NEW ORDERS TO REPEAT PROCALCITONIN BLOOD DRAW IN AM TOMORROW, NOTED AND CARRIED OUT.
--- NOTE | 2019-08-07 11:55 | NUR ---
MS RN NOTES PATIENT TRANSPORTED FOR MRI IN STABLE CONDITION.
--- NOTE | 2019-08-07 13:05 | NUR ---
MS RN NOTES PATIENT CAME BACK FROM MRI IN STABLE CONDITION.
[2019-08-07 16:00] VITALS: BP 122/70
--- NOTE | 2019-08-07 19:26 | NUR ---
MS RN NOTES PATIENT IN BED, ALERT ORIENTED X 3. NO ACUTE DISTRESS NOTED BREATHING UNLABORED. IV ACCESS PATENT AND INTACT, NO REDNESS OR SWELLING NOTED .NEEDS ATTENDED AND ANTICIPATION. SAFETY MEASURES IN PLACE. CALL LIGHT WITHIN REACH. ENDORSED TO NIGHT NURSE FOR CONTINUITY OF CARE.
--- NOTE | 2019-08-07 19:30 | NUR ---
MS RN OPENING NOTE RECEIVED PATIENT IN BED. A/OX4. TOLERATING ROOM AIR. RESPIRATIONS ARE EVEN AND UNLABORED. NO SIGN OF SOB AT THIS TIME. DENIES PAIN AT THIS TIME. NO APPARENT DISTRESS AT THIS TIME. IV ACCESS IN LFA #20 RUNNING NS@75ML/HR. BED IS LOW AND LOCKED, SIDE RAILS UPX2, HOB ELEVATED. CALL LIGHT WITHIN REACH. WILL CONTINUE TO MONITOR.
[2019-08-07 20:00] VITALS: BP 148/82
[2019-08-07] MEDS: INSULIN GLARGINE, 100 UNIT/ML CARTRIDGE SQ SCH (22:08)
[2019-08-07] MEDS: *INSULIN REGULAR(HUMULIN R)HUM 100 UNIT/ML VIAL SQ PRN (22:09)
[2019-08-08] MEDS: DEXAMETHASONE SOD PHOSPHATE 4 MG/ML VIAL IV SCH ×4 (00:19→17:52)
[2019-08-08] MEDS: HYDROCODONE/APAP 5/325MG 1 EACH TABLET PO PRN ×2 (00:21→08:24)
--- NOTE | 2019-08-08 00:21 | NUR ---
MS RN NOTE ADMINISTERED PRN NORCO 5/325 FOR PAIN 8/10 FOR RIGHT ABDOMINAL PAIN. WILL CONTINUE TO MONITOR.
[2019-08-08] MEDS: IV NS 0.9% 1,000 ML IV PRN (03:14)
[2019-08-08] MEDS: MEROPENEM 500 MG in IV NS 0.9% 50 ML IV SCH (05:03)
[2019-08-08 06:19] LABS: BASOPHILS # (AUTO) 0.1 /CMM (0.0-0.2); BASOPHILS % (AUTO) 0.2 % (0.0-2.0); HEMATOCRIT 27 % (39-51); HEMOGLOBIN 8.9 g/dL (13.5-17.5); LYMPHOCYTES # (AUTO) 0.6 /CMM (0.8-4.8); LYMPHOCYTES % (AUTO) 2.5 % (20.0-44.0); MEAN CORPUSCULAR HGB CONC 32 g/dl (31.0-36.0); MEAN CORPUSCULAR VOLUME 89 fL (80-96); MONOCYTES # (AUTO) 0.1 /CMM (0.1-1.30); MONOCYTES % (AUTO) 0.4 % (2.0-12.0); NEUTROPHILS # (AUTO) 23.1 /CMM (1.8-8.9); NEUTROPHILS % (AUTO) 96.9 % (43.0-81.0); PLATELET COUNT (AUTO) 315 /CMM (150-450); RED BLOOD CELL COUNT(AUTO) 3.09 MIL/uL (4.5-6.0); WHITE BLOOD COUNT (AUTO) 23.8 K/uL (4.3-11.0)
[2019-08-08] MEDS: BLOOD SUGAR DIAGNOSTIC 1 EACH STRIP VI SCH ×4 (06:23→21:05)
[2019-08-08] MEDS: *INSULIN REGULAR(HUMULIN R)HUM 100 UNIT/ML VIAL SQ PRN ×2 (06:28→21:09)
--- NOTE | 2019-08-08 06:30 | NUR ---
MS RN CLOSING NOTE PATIENT IN BED. A/OX4. TOLERATING ROOM AIR. RESPIRATIONS ARE EVEN AND UNLABORED. NO SIGN OF SOB. NO APPARENT DISTRESS THROUGHOUT SHIFT. IV ACCESS MAINTAINED IN LFA #20 RUNNING NS@75ML/HR. BED IS LOW AND LOCKED, SIDE RAILS UPX2, HOB ELEVATED. CALL LIGHT WITHIN REACH. WILL ENDORSE TO NEXT SHIFT.
[2019-08-08 06:35] LABS: CALCIUM, SERUM 7.9 mg/dL (8.5-10.1); CREATININE 4.9 mg/dL (0.6-1.3); MAGNESIUM 1.6 mg/dL (1.8-2.4); POTASSIUM 4.5 mmol/L (3.5-5.1)
[2019-08-08 07:01] LABS: PHOSPHORUS 8.3 mg/dL (2.5-4.9)
--- NOTE | 2019-08-08 07:05 | NUR ---
MS RN NOTE RECEIVED CRITICAL LAB FROM YAIMA IN LAB. PHOSPHORUS IS 8.3, HIGH. UNABLE TO REACH DOCTOR AT THIS TIME. WILL ENDORSE TO DAY SHIFT.
--- NOTE | 2019-08-08 07:50 | NUR ---
MS RN NOTES LABORATORY TEST RESULTED INCLUDING PHOSPHORUS AND PROCALCITONIN HIGH LEVEL, ASHLEY WICK PRESENT ON THE FLOOR MADE AWARE, NO NEW ORDERS MADE AT THIS TIME.
[2019-08-08 08:00] VITALS: BP 153/89
[2019-08-08 08:06] LABS: *SPE A/G RATIO 0.9 (0.7-1.7); *SPE ALBUMIN 2.5 g/dL (2.9-4.4); *SPE ALPHA-1-GLOBULIN 0.3 g/dL (0.0-0.4); *SPE ALPHA-2-GLOBULIN 0.8 g/dL (0.4-1.0); *SPE BETA GLOBULIN 0.9 g/dL (0.7-1.3); *SPE GLOBULIN, TOTAL 2.9 g/dL (2.2-3.9); *SPE M-SPIKE Not Observed g/dL (Not Observed); *SPEGAMMA GLOBULIN 0.9 g/dL (0.4-1.8); IMMUNOGLOBULIN A, SERUM 317 mg/dL (61-437); IMMUNOGLOBULIN G, SERUM 1030 mg/dL (700-1600); IMMUNOGLOBULIN M, SERUM 129 mg/dL (20-172)
[2019-08-08] MEDS: LACTOBACILLUS RHAMNOSUS GG 1 EACH CAP.SPRINK PO SCH ×2 (08:09→17:48)
[2019-08-08] MEDS: CARVEDILOL 12.5 MG TABLET PO SCH (08:10)
[2019-08-08] MEDS: ASPIRIN 81 MG TAB.CHEW PO SCH (08:10)
[2019-08-08] MEDS: LINEZOLID RTU BAG 600 MG in PREMIX 1 EA IV SCH (08:24)
[2019-08-08] MEDS: Magnesium 1GM/D5W 100ML PREMIX 100 ML IV SCH ×2 (10:37→11:40)
[2019-08-08] MEDS: SEVELAMER CARBONATE 0.8 GM POWD.PACK PO SCH ×3 (11:11→17:52)
[2019-08-08] MEDS: INSULIN REGULAR, HUMAN 100 UNIT/ML 3 ML VIAL SQ PRN ×2 (12:17→17:51)
[2019-08-08 15:24] LABS: OCCULT BLOOD STOOL NEGATIVE (NEGATIVE)
[2019-08-08 16:00] VITALS: BP 159/86
--- NOTE | 2019-08-08 17:36 | NUR ---
MS RN NOTES RECEIVED NEW ORDERS FROM DR CASSIE SOMERS FOR CMP,PT WITH INR, PTT, CT GUIDED PARASPINAL MASS BIOPSY AND CONSENT FOR TOMORROW AM. NOTED AND CARRIED OUT
--- NOTE | 2019-08-08 18:58 | NUR ---
MS RN NOTES PATIENT IN BED, ALERT ORIENTED X 3. NO ACUTE DISTRESS NOTED. BREATHING UNLABORED. IV ACCESS PATENT AND INTACT, NO REDNESS OR SWELLING NOTED .NEEDS ATTENDED AND ANTICIPATED.KEPT CLEAN DRY AND COMFORTABLE .SAFETY MEASURES IN PLACE. CALL LIGHT WITHIN REACH. WILL ENDORSE TO NIGHT NURSE FOR CONTINUITY OF CARE
--- NOTE | 2019-08-08 19:26 | NUR ---
MS RN RECEIVE PT IN BED A/O X 3 STABLE, RESPIRATION EVEN AND UNLABORED, NO S/S OF DISTRESS. SAFETY MEASURES IN PLACE. WILL CONT TO MTR.
[2019-08-08 20:00] VITALS: BP 153/83
[2019-08-08] MEDS: INSULIN GLARGINE, 100 UNIT/ML CARTRIDGE SQ SCH (21:07)
[2019-08-09] MEDS: DEXAMETHASONE SOD PHOSPHATE 4 MG/ML VIAL IV SCH ×4 (00:19→18:17)
--- NOTE | 2019-08-09 06:02 | NUR ---
MS RN NO SIGNIFICANT CHANGES THROUGHOUT THE SHIFT. NO C/O OF PAIN. PT SLEPT WELL. NURSING CARE RENDERED, KEPT CLEAN AND DRY AND COMFORTABLE. NEEDS ATTENDED AND ANTICIPATED. GOOD SKIN CARE AT ALL TIMES. OFFLOAD HEELS AND ELBOWS. SAFETY MEASURES AT ALL TIMES. ENDORSE TO THE NEXT SHIFT.
[2019-08-09] MEDS: BLOOD SUGAR DIAGNOSTIC 1 EACH STRIP VI SCH ×4 (06:14→21:07)
[2019-08-09] MEDS: INSULIN REGULAR, HUMAN 100 UNIT/ML 3 ML VIAL SQ PRN ×3 (06:14→17:26)
[2019-08-09 06:18] LABS: BASOPHILS % (AUTO) 0.1 % (0.0-2.0); HEMATOCRIT 27 % (39-51); HEMOGLOBIN 8.8 g/dL (13.5-17.5); LYMPHOCYTES # (AUTO) 0.5 /CMM (0.8-4.8); LYMPHOCYTES % (AUTO) 1.7 % (20.0-44.0); MEAN CORPUSCULAR HGB CONC 33 g/dl (31.0-36.0); MEAN CORPUSCULAR VOLUME 88 fL (80-96); MONOCYTES # (AUTO) 0.1 /CMM (0.1-1.30); MONOCYTES % (AUTO) 0.5 % (2.0-12.0); NEUTROPHILS # (AUTO) 28.7 /CMM (1.8-8.9); NEUTROPHILS % (AUTO) 97.7 % (43.0-81.0); PLATELET COUNT (AUTO) 325 /CMM (150-450); RED BLOOD CELL COUNT(AUTO) 3.08 MIL/uL (4.5-6.0); WHITE BLOOD COUNT (AUTO) 29.4 K/uL (4.3-11.0)
[2019-08-09 06:38] LABS: ALBUMIN 2.2 g/dL (3.4-5.0); BILIRUBIN,TOTAL 0.2 mg/dL (0.2-1.0); CALCIUM, SERUM 7.7 mg/dL (8.5-10.1); MAGNESIUM 2.1 mg/dL (1.8-2.4); POTASSIUM 4.3 mmol/L (3.5-5.1); TOTAL PROTEIN, SERUM 6.1 g/dL (6.4-8.2)
[2019-08-09 06:48] LABS: PHOSPHORUS 8.6 mg/dL (2.5-4.9)
--- NOTE | 2019-08-09 06:49 | NUR ---
RECEIVED CRITICAL LAB FROM LAB. PHOSPHORUS IS 8.6, BUN 80 WILL ENDORSE TO NEXT SHIFT. HOSPITALIST UNABLE TO REACH AT THIS TIME.
[2019-08-09 08:00] VITALS: BP 157/89
--- NOTE | 2019-08-09 08:00 | NUR ---
m/s manager copy: initial assessment received pt in bed awake, a/ox3. no c/o pain or any discomfort at this time. no apparent distress noted. instructed to call for assistance. will continue to monitor.
--- NOTE | 2019-08-09 08:30 | NUR ---
m/s senior qa engineer: cardio f/u seen by dr. higgins at this time.
[2019-08-09] MEDS: SEVELAMER CARBONATE 0.8 GM POWD.PACK PO SCH ×3 (08:35→17:30)
[2019-08-09] MEDS: CARVEDILOL 12.5 MG TABLET PO SCH (08:36)
[2019-08-09] MEDS: HYDROCODONE/APAP 5/325MG 1 EACH TABLET PO PRN ×3 (08:36→21:44)
[2019-08-09] MEDS: LACTOBACILLUS RHAMNOSUS GG 1 EACH CAP.SPRINK PO SCH ×2 (08:36→17:30)
--- NOTE | 2019-08-09 09:00 | NUR ---
m/s certified legal secretary specialist: md visit seen and examined by dr. yang at this time.
--- NOTE | 2019-08-09 10:10 | NUR ---
m/s youth ministry director: notes yunier (shingle grader) called and wants pt to sign us guided in case the radiologist wants to do and moderate sedation consent. pt made aware of procedure and moderate sedation and verbalized understanding. instructed pt not to eat and drink until this the procedure is done. consents signed by pt. instructed to call for assistance.
--- NOTE | 2019-08-09 11:30 | NUR ---
m/s drapery and upholstery estimator: notes trisha (inspector technician) called me and informed me that they cannot do the ct guided today because they don't have a pathologist available and will reschedule procedure on monday as stated. dr. stone (certified registered nurse practitioner) notified and made aware, stated, "yes i know, the radiologist is talking to the hospitalist (dr. yang) right now."
--- NOTE | 2019-08-09 11:40 | NUR ---
m/s systems admin: notes informed pt that ct guided will not be done today and has been rescheduled due to no pathologist available today.
--- NOTE | 2019-08-09 12:00 | NUR ---
m/s brick stacker: notes lunch served. instructed to call for assistance. will monitor.
--- NOTE | 2019-08-09 12:30 | NUR ---
m/s arabic translator: nephro f/u seen by dr. garcia.
--- NOTE | 2019-08-09 14:30 | NUR ---
m/s maintenance trainer: id f/u seen by allison curile) at this time.
--- NOTE | 2019-08-09 15:00 | NUR ---
m/s household appliances salesperson: notes in bed with eyes close. no distress noted. will continue to monitor.
[2019-08-09 16:00] VITALS: BP 140/71
--- NOTE | 2019-08-09 17:00 | NUR ---
m/s cold saw operator: notes dinner served. instructed to call for assistance. will monitor.
--- NOTE | 2019-08-09 17:56 | NUR ---
m/s price clerk: notes c/o 8 lower back pain, medicated with norco 5/325 1 tab po as ordered. instructed to call for assistance. will continue to monitor.
--- NOTE | 2019-08-09 18:34 | NUR ---
m/s swift tender: notes in bed resting comfortable. no distress noted. needs attended. dr. stone here. will continue to monitor.
--- NOTE | 2019-08-09 18:56 | NUR ---
m/s electronic coils supervisor: notes resting quietly in bed. call light within reach. will monitor.
--- NOTE | 2019-08-09 19:10 | NUR ---
m/s forest management teacher: notes report given to annette (rn) for continuity of care.
--- NOTE | 2019-08-09 19:21 | NUR ---
MS RN RECEIVE PT SITTING IN THE BED A/O X 3 STABLE CONDITION, RESPIRATION EVEN AND UNLABORED, NO S/S OF DISTRESS. SAFETY MEASURES IN PLACE. WILL CONT TO MTR.
[2019-08-09 20:00] VITALS: BP 156/89
[2019-08-09] MEDS: INSULIN GLARGINE, 100 UNIT/ML CARTRIDGE SQ SCH (21:13)
[2019-08-09] MEDS: *INSULIN REGULAR(HUMULIN R)HUM 100 UNIT/ML VIAL SQ PRN (21:15)
[2019-08-09] MEDS ORDERED: GABAPENTIN 300 MG CAPSULE PO SCH (21:30)
[2019-08-10] MEDS: DEXAMETHASONE SOD PHOSPHATE 4 MG/ML VIAL IV SCH ×5 (01:01→23:10)
--- NOTE | 2019-08-10 06:06 | NUR ---
MS RN ASLEEP AND EASILY AWAKEN, NO COMPLAIN OF PAIN, NO S/S OF DISTRESS, KEPT CLEAN AND DRY AND COMFORTABLE. SLEPT WELL. NEEDS ATTENDED AND ANTICIPATED. AM CARE RENDERED. OFFLOAD HEELS AND ELBOWS. SAFETY MEASURES AT ALL TIMES. ENDORSE TO THE NEXT SHIFT.
[2019-08-10] MEDS: INSULIN REGULAR, HUMAN 100 UNIT/ML 3 ML VIAL SQ PRN ×3 (06:43→19:42)
[2019-08-10] MEDS: BLOOD SUGAR DIAGNOSTIC 1 EACH STRIP VI SCH ×4 (06:44→21:19)
--- NOTE | 2019-08-10 07:29 | NUR ---
UNABLE TO GET SPUTUM SPECIMEN PT UNABLE TO EXPECTORATE WILL ENDORSE
--- NOTE | 2019-08-10 07:30 | NUR ---
MS RN OPENING NOTES RECEIVED PATIENT IN BED RESTING COMFORTABLY IN MODERATE HIGH BACK REST. A/O X4. NO COMPLAIN OF PAIN AT THIS TIME. IV ACCESS ON LFA #20, SL. PATENT AND INTACT. SAFETY MEASURES IN PLACE, BED IN LOW LOCKED POSITION WITH SIDE RAILS UP X2. CALL LIGHT WITHIN REACH. WILL CONTINUE TO MONITOR.
[2019-08-10 08:00] VITALS: BP 138/75
[2019-08-10 08:08] LABS: CALCIUM, SERUM 7.5 mg/dL (8.5-10.1); CREATININE 4.9 mg/dL (0.6-1.3); POTASSIUM 4.3 mmol/L (3.5-5.1)
[2019-08-10] MEDS: LACTOBACILLUS RHAMNOSUS GG 1 EACH CAP.SPRINK PO SCH ×2 (08:58→17:46)
[2019-08-10] MEDS: SEVELAMER CARBONATE 0.8 GM POWD.PACK PO SCH ×3 (08:58→17:48)
[2019-08-10] MEDS: GABAPENTIN 300 MG CAPSULE PO SCH ×2 (08:58→17:46)
[2019-08-10] MEDS: CARVEDILOL 12.5 MG TABLET PO SCH (08:58)
[2019-08-10] MEDS: HYDROCODONE/APAP 5/325MG 1 EACH TABLET PO PRN (11:41)
--- NOTE | 2019-08-10 11:41 | NUR ---
RN NOTES ADMINISTERED NARCO 5/325 MG PO PRN FOR RIGHT UMBICAL AREA PAIN / PER PATIENT REQUEST, V/S TAKEN BP-150/90. P-88, R-18. CONTINUED MONITORING.
[2019-08-10] MEDS: *INSULIN REGULAR(HUMULIN R)HUM 100 UNIT/ML VIAL SQ PRN ×2 (12:06→21:28)
--- NOTE | 2019-08-10 12:11 | NUR ---
RN NOTES BS-274 MG/DL COVERAGE GIVEN, ALSO ADMINISTERED SCHEDULED 1200 MEDICATION, BUT REFUSED 1300 MEDICATION, CONTINUED MONITORING.
[2019-08-10 16:00] VITALS: BP 122/74
--- NOTE | 2019-08-10 18:30 | NUR ---
RN NOTES PATIENT IN THE BED BS-257 MG/DL COVERAGE GIVEN, V/S STABLE, ALSO ADMINISTERED SCHEDULED MEDICATION, PATIENT WAS COMPLAINING OF PAIN BUT REFUSED PAIN MEDICATION AT THIS TIME. SEEN PATIENT BY Dr CARDOSO, PATIENT AMBULATORY WITH MINIMUM ASSIST. CALL LIGHT WITHIN TO REACH. ENDORSED ONCOMING NURSE FOLLOW PLAN OF CARE.
--- NOTE | 2019-08-10 19:23 | NUR ---
MS RN RECEIVE PT IN BED A/O X 3, AWAKE, RESPIRATION EVEN AND UNLABORED, NO S/S OF DISTRESS. SAFETY MEASURES IN PLACE. WILL CONT TO MTR
[2019-08-10 20:00] VITALS: BP_SYST 128; BP_SYST 150; BP_SYST 168; BP_DIAS 66; BP_DIAS 84; BP_DIAS 93
[2019-08-10 20:30] VITALS: BP 130/85
[2019-08-10] MEDS: INSULIN GLARGINE, 100 UNIT/ML CARTRIDGE SQ SCH (21:21)
[2019-08-10 21:38] VITALS: BP 134/85
[2019-08-11] MEDS: DEXAMETHASONE SOD PHOSPHATE 4 MG/ML VIAL IV SCH ×4 (05:31→23:23)
[2019-08-11] MEDS: BLOOD SUGAR DIAGNOSTIC 1 EACH STRIP VI SCH (06:01)
[2019-08-11] MEDS: INSULIN REGULAR, HUMAN 100 UNIT/ML 3 ML VIAL SQ PRN ×3 (06:05→17:41)
--- NOTE | 2019-08-11 06:07 | NUR ---
MS MOE BLOOD SUGAR 420 MG/DL PROTOCOL INITIATED CORINNE Berman PT STABLE
--- NOTE | 2019-08-11 06:09 | NUR ---
SPOKE TO HOSPITALIST DR. RUBALCAVA NO NEW ORDERS AT THIS TIME WILL CONT TO MTR Addendum: 08/11/19 at 0655 by JESSICA GARZA RN RELAYED RECENT BLOOD SUGAR
--- NOTE | 2019-08-11 06:23 | NUR ---
MS RN PT STABLE, SLEPT WELL. NO COMPLAIN OF PAIN. AM CARE RENDERED. NO SIGNIFICANT CHANGES, NEEDS ATTENDED AND ANTICIPATED. KEPT CLEAN AND DRY, COMFORTABLE. PT REFUSED AM LAB DRAW PER PT "PLS COME BACK LATER I WANNA REST" DESPITE EXPLAINING RISKS AND BENEFITS. LAB APPEALS AND GENERALIST CLERK AWARE SAFETY MEASURES AT ALL TIMES. WILL ENDORSE TO NEXT SHIFT POC
--- NOTE | 2019-08-11 06:53 | NUR ---
RECHECKED BLOOD SUGAR 427 MG/DL PT EATING YOGURT AND NON COMPLAINT WANTS TO EAT COOKIES. WILL ENDORSE NEXT SHIFT POC
--- NOTE | 2019-08-11 07:07 | NUR ---
PT NON COMPLAINT AND STILL WANTS TO EAT DESPITE EXPLAINING RISKS AND BENEFITS. ENDORSE TO NEXT RN TO RE CHECK BLOOD SUGAR
--- NOTE | 2019-08-11 07:30 | NUR ---
RN MS NOTES PT IN BED, AWAKE, ALERT AND ORIENTED, DENIES PAIN, NOT IN DISTRESS, AT BEDSIDE, ASSISTED WITH MEALS, CALL LIGHT WITHIN REACH, NEEDS ATTENDED.
[2019-08-11 08:00] VITALS: BP 147/69
[2019-08-11] MEDS: SEVELAMER CARBONATE 0.8 GM POWD.PACK PO SCH ×3 (08:00→17:49)
[2019-08-11] MEDS: CARVEDILOL 12.5 MG TABLET PO SCH (08:41)
[2019-08-11] MEDS: LACTOBACILLUS RHAMNOSUS GG 1 EACH CAP.SPRINK PO SCH ×2 (08:41→17:24)
[2019-08-11] MEDS: GABAPENTIN 300 MG CAPSULE PO SCH ×3 (09:03→17:25)
--- NOTE | 2019-08-11 10:02 | NUR ---
RN MS NOTES RECHECKED PT'S BS - 437, NO COMPLAINT AT THIS TIME, REMAINS ALERT AND ORIENTED, DR. COLLADO INFORMED OF PT'S ELEVATED BLOOD SUGAR, ORDERED TO INCREASE LANTUS TO 30 UNITS QHS AND CHANGE SLIDING SCALE TO AGGRESSIVE, NOTED AND CARRIED OUT, PT INFORMED.
[2019-08-11] MEDS ORDERED: *INSULIN REGULAR(HUMULIN R)HUM 100 UNIT/ML VIAL SQ PRN (10:30)
--- NOTE | 2019-08-11 10:37 | NUR ---
RN MS NOTES PER DR. COLLADO, GIVE 20 UNITS REGULAR INSULIN ONE TIME NOW.
[2019-08-11] MEDS: HYDROCODONE/APAP 5/325MG 1 EACH TABLET PO PRN (10:54)
[2019-08-11] MEDS ORDERED: INSULIN REGULAR, HUMAN 100 UNIT/ML 10 ML VIAL SQ ONE (11:00)
[2019-08-11] MEDS: BLOOD SUGAR DIAGNOSTIC 1 EACH STRIP IN SCH ×3 (12:18→22:45)
--- NOTE | 2019-08-11 12:33 | NUR ---
RN MS NOTES PT SEEN BY DR. TOBIAS MD AWARE OF PT'S REFUSALS FOR BLOOD DRAW, PER MD, GIVE ANOTHER 20 UNITS OF REGULAR INSULIN AND MONITOR, PT IN BED, RESTING, NOT IN PAIN OR DISTRESS.
[2019-08-11 16:00] VITALS: BP 130/45
--- NOTE | 2019-08-11 18:45 | NUR ---
RN MS NOTES PT IN BED, AWAKE, ALERT AND ORIENTED, NO COMPLAINT OF PAIN, NOT IN DISTRESS, CALL LIGHT WITHIN REACH, BS CHECKED, INSULIN GIVEN PER SLIDING SCALE ORDERED, ASSISTED WITH MEALS, ALL NEEDS ATTENDED.
[2019-08-11 20:14] VITALS: BP 115/49
[2019-08-11] MEDS ORDERED: INSULIN GLARGINE, 100 UNIT/ML CARTRIDGE SQ SCH (22:00)
[2019-08-12] MEDS: DEXAMETHASONE SOD PHOSPHATE 4 MG/ML VIAL IV SCH ×2 (06:00→11:36)
--- NOTE | 2019-08-12 06:06 | NUR ---
refused am labs per laboratory operations coordinator Addendum: 08/12/19 at 0621 by MIAN PEREZ RN spoke with patient and informed him that refusal this am might delay biopsy procedure. saarh states, "No, No no more needles. I don't want."
[2019-08-12] MEDS: BLOOD SUGAR DIAGNOSTIC 1 EACH STRIP IN SCH ×2 (06:21→11:36)
[2019-08-12] MEDS: INSULIN REGULAR, HUMAN 100 UNIT/ML 3 ML VIAL SQ PRN (06:22)
--- NOTE | 2019-08-12 06:38 | NUR ---
RN MS PM NOTE CLOSING PT IN BED, AWAKE, ALERT AND ORIENTED, NO COMPLAINT OF PAIN, NOT IN DISTRESS, CALL LIGHT WITHIN REACH, BS CHECKED THIS AM LEVEL IS 92 BUT NO INSULIN GIVEN PER SLIDING SCALE PATIENT REFUSED AM LABS. BED DOWN LOCKES SRX2. CALL LIGHT WITHIN REACH VERBALIZED UNDERSTANDING TO CALL FOR ASSISTANCE IF NEEDED. PATIENT SCHEDULED FOR CT BIOPSY THIS AM AND HAS BEEN NPO SINCE [facility] AND CONSENT FOR PROCEDURE IS SIGNED. WILL ENDORSE TO AM SHIFT FOR MARY LOU.
--- NOTE | 2019-08-12 07:30 | NUR ---
MS RN OPENING NOTE PATIENT IN BED RESTING COMFORTABLY. PATIENT IN NO ACUTE DISTRESS. NO SOB NOTED. PATIENT BREATHING IS EVEN AND UNLABORED. PATIENT IN NO PAIN AT THIS TIME. NO FACIAL GRIMACING NOTED. SAFETY PRECAUTIONS IN PLACE. PATIENT BED IS LOCKED AND IN LOWEST POSITION. CALL LIGHT IS WITHIN REACH. WILL CONTINUE TO MONITOR.
--- NOTE | 2019-08-12 07:45 | NUR ---
MS MOE NOTE PATIENT MAINTAINED ON NPO STATUS. Addendum: 08/12/19 at 0938 by SHAHID CHRISTY RN CALLED TO RADIOLOGY TO CONFIRM NPO STATUS, NPO EXCEPT MEDS IS ACCEPTABLE.
[2019-08-12 08:30] VITALS: BP 98/72
[2019-08-12] MEDS: SEVELAMER CARBONATE 800 MG TABLET PO SCH ×2 (08:43→13:00)
[2019-08-12] MEDS: LACTOBACILLUS RHAMNOSUS GG 1 EACH CAP.SPRINK PO SCH (08:44)
[2019-08-12] MEDS: GABAPENTIN 300 MG CAPSULE PO SCH ×2 (08:44→13:00)
[2019-08-12] MEDS: CARVEDILOL 12.5 MG TABLET PO SCH (08:44)
[2019-08-12] MEDS ORDERED: SEVE800T7 PO (09:56)
[2019-08-12] MEDS ORDERED: HYDR-3972 PO (09:56)
[2019-08-12] MEDS ORDERED: PRED20TA PO (09:56)
[2019-08-12] MEDS ORDERED: INSU100V7 SQ (09:56)
[2019-08-12] MEDS ORDERED: GABA300C PO (09:56)
[2019-08-12] MEDS ORDERED: MIDAZOLAM HCL 5MG/ML VIAL 25 MG/5 ML VIAL IV ONE (11:30)
[2019-08-12] MEDS ORDERED: NALOXONE PREFILLED SYRINGE 2 MG/2 ML SYRINGE IV ONE (11:30)
[2019-08-12] MEDS ORDERED: FENTANYL PF 250MCG/5ML AMPUL IV ONE (11:30)
[2019-08-12] MEDS: DEXTROSE 50%-WATER 50 ML DISP.SYRIN IV PRN ×2 (11:45→13:22)
--- NOTE | 2019-08-12 11:55 | NUR ---
MS MOE NOTE PATIENT BLOOD SUGAR LEVEL WAS 25. ADMINISTERED DEXTROSE INJ 50%. WILL FOLLOW UP BLOOD SUGAR IN 15 MINS PER PROTOCOL. Addendum: 08/12/19 at 1206 by SHAHID CHRISTY RN PROTOCOL IS 30 MINS. REASSESSMENT AT 1215.
--- NOTE | 2019-08-12 12:15 | NUR ---
MS RN NOTE PATIENT BLOOD SUGAR AT 1215 FOR REASSESSMENT IS 81. PATIENT IS ALERT AND ORIENTED X4. MD NOTIFIED AND MADE AWARE. WILL FOLLOW UP BS. ORDERS FROM DR. COLLADO FOR D5 NS AT 125.
[2019-08-12] MEDS ORDERED: IV D5/ 0.9% NACL 1,000 ML IV PRN (12:30)
--- NOTE | 2019-08-12 13:22 | NUR ---
MS RN NOTE PATIENT BLOOD SUGAR 61 AT 1316. GAVE DEXTROSE 50% INJ. PATIENT IS NPO PRIOR TO HIS CT GUIDED SPINAL MASS BIOPSY. PER RADIOLOGY MD TO HAVE PATIENT RECEIVE DEXTROSE 50% INJ. AND SEND PATIENT DOWN TO RADIOLOGY WHERE THEY WILL CHECK AND MONITOR BLOOD SUGAR PRIOR AND DURING PROCEDURE.
[2019-08-12 13:25] VITALS: BP 115/76
--- NOTE | 2019-08-12 13:52 | NUR ---
MS RN NOTE DID NOT ADMINISTER GABAPENTIN AND SEVELAMER FOR 1300 MEDICATIONS. DUE TO PATIENT NOT ON FLOOR AND WITH RADIOLOGY FOR BIOPSY.
--- NOTE | 2019-08-12 14:30 | NUR ---
MS RN NOTE CALLED RADIOLOGY SPOKE WITH THE RN KIM WHO TOOK BLOOD SUGAR IN RADIOLOGY. PATIENT BLOOD SUGAR WAS 139 PRIOR TO BIOPSY. WAS UNABLE TO GRAB THE PATIENTS BLOOD SUGAR REASSESSMENT FOR 1352 TIME. DUE TO PATIENT NOT ON THE FLOOR AND IN RADIOLOGY.
--- NOTE | 2019-08-12 15:01 | NUR ---
MS RN NOTE NON ADMITTED NALOXONE, SUBLIMAZE IV, AND VERSED. PER RN KIM THE NURSE DID NOT ADMINISTER THOSE MEDICATIONS SEDATION WAS NOT NEEDED FOR PROCEDURE AND RETURNED THEM TO PHARMACY. CALLED PHARMACY TO CHECK, AND PER PHARMACY STATED FOR ME TO NON ADMIT THOSE MEDICATIONS.
--- NOTE | 2019-08-12 15:36 | NUR ---
MS RN NOTE BLOOD SUGAR IS 122 AND IS NO LONGER NPO AFTER BIOPSY.
--- NOTE | 2019-08-12 16:41 | NUR ---
MS ROUTE DRIVER COIN MACHINES NOTE PATIENT MEDICALLY STABLE TO GO HOME. PATIENT IN NO ACUTE DISTRESS. NO SOB NOTED. PATIENT TOLERATED BIOPSY WELL. PATIENT VITAL SIGNS WNL. PATIENT BREATHING IS EVEN AND UNLABORED. DC INSTRUCTIONS PROVIDED. PATIENT AND VERBALIZED UNDERSTANDING. PATIENT TO FOLLOW UP WITH BIOPSY IN A WEEK. PATIENT SIGNED BELONGINGS LIST AND HAS ALL BELONGINGS WITH HIM. ID BAND REMOVED. IV REMOVED. PATIENT REFUSED SKIN ASSESSMENT. PATIENT STATES " I DONT NEED A SKIN ASSESSMENT, MY SKIN IS GOOD" AND CONTINUED REFUSAL. ALL NURSING NEEDS MET. PATIENT KEPT CLEAN, DRY, AND COMFORTABLE THROUGHOUT SHIFT. PATIENT WENT BACK HOME WITH . PATIENT ATE BEFORE HE LEFT, PATIENT BLOOD SUGARS ARE STABLE. LAST BLOOD SUGAR 122, DR. COLLADO MADE AWARE. AND MD AWARE OF DISCHARGE.
== END 2019-08-12 16:20 | disposition home or self-care (01) | DRG 853 ==
LOC: ER 10:18 → MED 13:12
PROVIDERS: ADMIT Nurse Practitioner Acute Care; ATTEND Student in an Organized Health Care Education/Training Program
PROC: 0KBF3ZX Excision of Right Trunk Muscle, Percutaneous Approach, Diagnostic (ICD-10-PCS; principal; 2019-08-12)
DX: A41.9 Sepsis, unspecified organism (principal); G93.41 Metabolic encephalopathy; N17.0 Acute kidney failure with tubular necrosis; E43 Unspecified severe protein-calorie malnutrition; J15.9 Unspecified bacterial pneumonia; N18.6 End stage renal disease; N39.0 Urinary tract infection, site not specified; I50.33 Acute on chronic diastolic (congestive) heart failure; I13.2 Hypertensive heart and chronic kidney disease with heart failure and with stage 5 chronic kidney disease, or end stage renal disease; K86.1 Other chronic pancreatitis; R64 Cachexia; Z68.1 Body mass index [BMI] 19.9 or less, adult; R18.8 Other ascites; C77.8 Secondary and unspecified malignant neoplasm of lymph nodes of multiple regions; C79.51 Secondary malignant neoplasm of bone; C34.92 Malignant neoplasm of unspecified part of left bronchus or lung; C34.91 Malignant neoplasm of unspecified part of right bronchus or lung; C79.49 Secondary malignant neoplasm of other parts of nervous system; E11.65 Type 2 diabetes mellitus with hyperglycemia; E11.22 Type 2 diabetes mellitus with diabetic chronic kidney disease; F17.210 Nicotine dependence, cigarettes, uncomplicated; Z79.4 Long term (current) use of insulin; Z79.82 Long term (current) use of aspirin; Z87.01 Personal history of pneumonia (recurrent); N20.0 Calculus of kidney; R91.8 Other nonspecific abnormal finding of lung field; E88.09 Other disorders of plasma-protein metabolism, not elsewhere classified; E83.42 Hypomagnesemia; M54.15 Radiculopathy, thoracolumbar region; E83.9 Disorder of mineral metabolism, unspecified; M48.05 Spinal stenosis, thoracolumbar region; E83.39 Other disorders of phosphorus metabolism
CPT/HCPCS: 21550; 36415; 71045-TC; 71250-TC; 72128-TC; 72141-TC; 72146-TC; 72148-TC; 77012-TC; 80048-TC; 80053-TC; 80061-TC; 80076-TC; 81000-TC; 82010-TC; 82272-TC; 82378; 82728-TC; 82784; 82962-TC; 83540-TC; 83605-TC; 83690-TC; 83735-TC; 84100-TC; 84153-TC; 84154-TC; 84155; 84165; 84443-TC; 84484-TC; 85025-TC; 85610-TC; 85730-TC; 86334; 87040-TC; 87081-TC; 87086-TC; 87806; 87899; 88305-TC; 88342; 97116-TC; 97530-TC; A4216; G0378; J0456; J0696; J1100; J1815; J2020; J2185; J2250; J2310; J3010; J3370; J3475; J3490; J7030; J7060